=== PATIENT | female | born 1985 | race Caucasian/White ===

== ENCOUNTER 2017-11-12 22:55 | Emergency (ER) | payer OTHER, SELFPAY ==
[2017-11-12 23:24] VITALS: BP 135/73; PULSE 103; RESP 18; TEMP 36.9; O2SAT 100; BMI 24.1
[2017-11-13 00:20] VITALS: BP 135/70; PULSE 102; RESP 18; TEMP 37.1; O2SAT 100
[2017-11-13] MEDS: KETOROLAC 60 MG/2 ML VIAL IM (01:34)
[2017-11-13 01:50] VITALS: BP 149/79; PULSE 81; RESP 14; O2SAT 100
--- NOTE | 2017-11-13 06:55 | ED.BACK ---
HPI - Back Pain/Injury General Chief Complaint: Back Pain/Injury Stated Complaint: HEADACHE/FEVER Time Seen by Provider: 11/12/17 22:56 Source: patient Mode of arrival: ambulatory Limitations: no limitations History of Present Illness HPI Narrative: Patient presents to the emergency department this evening with a chief complaint of gradually worsening neck pain and now headache after doing some collin diving at [employer] earlier today. She denies numbness, tingling or weakness. She denies any loss of consciousness nor nausea or vomiting MD Complaint: other (neck pain) Onset (ago): hour(s) Duration: constant Similar Symptoms Previously: No Severity: mild Quality: burning Relieving factors: none Exacerbating factors: none Related Data Home Medications Medication Instructions Recorded Confirmed cyclobenzaprine #0 02/13/17 spironolactone [Aldactone] #0 02/13/17 Previous Rx's Medication Instructions Recorded epinephrine [EpiPen 2-Fabio] 0.3 mg INJ X1 #1 pkg 02/13/17 ondansetron [Zofran ODT] 4 mg SUBLINGUAL Q6HP PRN #20 odt 02/13/17 prednisone 50 mg PO AMCC #5 tab 02/13/17 ibuprofen 600 mg PO TID-QID PRN #20 tab 11/13/17 Allergies Allergy/AdvReac Type Severity Reaction Status Date / Time hydrochlorothiazide Allergy Severe angioedema Verified 11/12/17 23:31 Review of Systems Review of Systems All systems reviewed & are unremarkable except as noted in HPI and below Constitutional Denies chills, Denies fever(s), Denies lethargy and Denies weakness Eyes Denies change in vision, Denies eye discharge, Denies irritation and Denies loss of vision ENT Ears, Nose, Mouth, and Throat: Denies change in voice, Reports neck pain and Denies sore throat Cardiovascular Denies chest pain, Denies irregular heart rhythm, Denies lightheadedness, Denies palpitations, Denies dyspnea, Denies dyspnea on exertion and Denies orthopnea Respiratory Denies cough, Denies dyspnea, Denies dyspnea on exertion and Denies wheezing Gastrointestinal Gastrointestinal: Denies abdominal pain, Denies change in bowel habits, Denies diarrhea, Denies nausea and Denies vomiting Genitourinary Denies hematuria, Denies flank pain, Denies urinary incontinence and Denies urinary urgency Musculoskeletal Reports neck pain, Denies numbness, Denies radiating pain into limb and Denies stiffness Integumentary/Breasts Denies pruritus, Denies erythema, Denies rash and Denies wounds Neurologic Denies confusion, Denies loss of vision, Denies numbness and Denies weakness Psychiatric Denies anxiety, Denies confusion, Denies depression, Denies homicidal ideation and Denies suicidal ideation Endocrine Denies palpitations Hematologic/Lymphatic Denies easy bruising Allergic/Immunologic Denies wheezing [facility] Social History Smoking Status: Never smoker Exam Initial Vital Signs Initial Vital Signs: Vital Signs Temperature 98.5 F 11/12/17 23:24 Pulse Rate 103 H 11/12/17 23:24 Respiratory Rate 18 11/12/17 23:24 Blood Pressure 135/73 H 11/12/17 23:24 Pulse Oximetry 100 11/12/17 23:24 Const General: cooperative and well developed Nutritional Appearance: well nourished Orientation: alert, awake, oriented x3 and not confused HENNC Head: normocephalic and atraumatic Ears: external ears normal and TM's normal bilaterally Nose: external nose normal and No nasal discharge Face and sinus: sinuses nontender, face symmetric, no sinus tenderness and No dry mucous membranes Mouth: oral mucosae normal and moist mucous membranes Teeth and gingiva: dentition normal Throat: tonsils normal and uvula midline Neck Neck: normal visual inspection, full ROM, No no meningeal signs, No trachea midline, supple, No anterior neck swelling, No lymphadenopathy, No midline deformity, No positive Brudzinski's sign, No positive Kernig's sign, tender, No torticollis, No tracheal deviation and No tracheostomy present Resp Effort & Inspection: normal respiratory effort, able to speak in complete sentences, no respiratory distress and no use of accessory muscles Auscultation: clear to auscultation bilaterally, no rales, no rhonchi and no wheezes GI Inspection: non-distended Palpation: soft, no hepatosplenomegaly, No guarding, No pulsatile mass and No tender Auscultation: normal bowel sounds Back/Spine/Pelvis Back: No CVA tenderness Cervical Spine: cervical ROM normal and No pain with cervical ROM Thoracic/Lumbar Spine: thoracic and lumbar spine normal to inspection Skin General: no rashes or lesions noted, No jaundice and No petechiae Neuro General: alert, oriented x3, gait normal and no focal motor deficits Speech: speech normal Course Orders Ordered: Discontinued Medications Ketorolac Tromethamine (Toradol) 60 mg IM NOW ONE Stop: 11/13/17 01:27 Last Admin: 11/13/17 01:34 Dose: 60 mg Reevaluation(s) Reevaluation #1: Patient experiences some relief after Toradol injection. Mild improvement after trigger point injections with 1 cc of lidocaine at insertion of paraspinal cervical muscles and nuchal ridge bilaterally Vital Signs - 8 hr 11/12/17 23:24 11/13/17 00:20 11/13/17 01:50 Temperature 98.5 F 98.8 F Pulse Rate 103 H 102 H 81 Respiratory Rate 18 18 14 Blood Pressure 135/73 H Blood Pressure [Right Arm] 135/70 H 149/79 H Pulse Oximetry 100 100 100 Discharge Plan Departure Patient Disposition: Home, Self-Care Clinical Impression: Cervical paraspinal muscle spasm Discharge Date/Time: 11/13/17 02:05 Interventions: ED Discharge Assessment Last Done: 11/13/17 02:05 Instructions: DI for Neck Pain Activity Restrictions/Additional Instructions: *You have been diagnosed with [cervical paraspinal muscle spasm ] *What to do: *Take medications as directed *Follow up with your primary care provider in 2-3 days *Return to ER if you should have any new, worsening or concerning symptoms Prescriptions: New ibuprofen 600 mg tablet 600 mg PO TID-QID PRN (Reason: pain) Qty: 20 RF: 0 No Action cyclobenzaprine 5 MG tablet Qty: 0 RF: 0 spironolactone [Aldactone] 25 MG tablet Qty: 0 RF: 0 prednisone 50 MG tablet 50 mg PO AMCC Qty: 5 RF: 0 epinephrine [EpiPen 2-Fabio] 0.3 MG/0.3 ML auto-injector 0.3 mg INJ X1 Qty: 1 RF: 0 ondansetron [Zofran ODT] 4 MG tablet,disintegrating 4 mg Sublingual Q6HP PRNQty: 20 RF: 0
== END 2017-11-13 02:05 | disposition home or self-care (01) ==
PROVIDERS: Emergency Provider Emergency Medicine
DX: R51 Headache (principal)
CPT/HCPCS: 96372; 99282; 99283; J1885

== ENCOUNTER → 2019-05-04 09:41 | Outpatient (CLI) | payer OTHER, SELFPAY ==
--- NOTE | 2019-05-04 09:43 | DI.RAD.S_ITS ---
PROCEDURE: XR CHEST 2V INDICATIONS: SOB, r/o pneumonia TECHNIQUE: 2 views of the chest were acquired. COMPARISON: None. FINDINGS: Surgical changes and devices: None. Lungs and pleura: Lungs are clear. No pleural effusions or pneumothorax. Mediastinum: Mediastinal contours are normal. Heart size is normal. Bones and chest wall: No suspicious bony abnormalities. Soft tissues appear unremarkable. IMPRESSION: No acute cardiopulmonary disease. Dictated by: Analilia Barton M.D. on 05/04/2019 at 9:56 Approved by: Analilia Barton M.D. on 05/04/2019 at 9:57
== END ==
PROVIDERS: Visit Provider Nurse Practitioner
DX: R06.02 Shortness of breath (principal)
CPT/HCPCS: 71046

== ENCOUNTER → 2019-06-04 10:46 | Outpatient (CLI) | payer OTHER, SELFPAY ==
--- NOTE | 2019-06-04 | DI.US.S_ITS ---
PROCEDURE: US THYROID INDICATIONS: DYSPHAGIA TECHNIQUE: Real-time scanning was performed of the thyroid gland, with image documentation. COMPARISON: None. FINDINGS: Right: Thyroid lobe measures 5.4 x 1.9 x 1.6 cm, and is homogeneous in echotexture. Left: Thyroid lobe measures 3.7 x 1.7 x 1.2 cm, and is homogenous in echotexture. Isthmus: 3.0 mm thick. IMPRESSION: Normal thyroid. Dictated by: Aj ASHLEY Interpreted: Librado Hatch MD on 06/04/2019 at 11:51 Approved by: Librado Hatch M.D. on 06/04/2019 at 13:28
== END ==
PROVIDERS: Visit Provider Otolaryngology
DX: R13.19 Other dysphagia (principal)
CPT/HCPCS: 76536

== ENCOUNTER 2019-10-27 11:06 | Emergency (ER) | payer OTHER, SELFPAY ==
[2019-10-27 11:22] VITALS: BP 148/66; PULSE 121; RESP 14; TEMP 36.4; O2SAT 98
[2019-10-27 13:59] VITALS: BP 134/73
--- NOTE | 2019-10-27 14:46 | ED_ITS ---
HPI - Extremity Problem General Chief complaint: Extremity Problem,Nontraumatic Stated complaint: Pain in Rt are & fingers 2 days, face flushed Time Seen by Provider: 10/27/19 14:25 Mode of arrival: Ambulatory History of Present Illness HPI Narrative: CC: Right hand and arm pain. HPI: The patient is a 34-year-old female who has a history of Raynaud's phenomena. She states that she developed pain and discomfort in her pointing finger over the last 2 months. The pain then moved to the adjacent fingers. The pain has moved up her arm and from her arm to her neck into the side of her face. The discomfort is throbbing dull and achy. She feels as though she has a pressure in her arm and that it is going to explode. Her discomfort is 6 to 7/10 in intensity. She states that her right face feels warm and and becomes erythematous. She admits to a history of migraines and ocular migraines. She usually has an ocular migraine once a month. She has not had any eye pain or loss of vision or change of vision. She currently has a mild headache. She denies any fall or injury. She denies a history of myocardial infarction stroke seizures hypertension di abetes mellitus. She does not smoke cigarettes rarely uses marijuana and drinks alcohol periodically. She denies any seizures. She has had no loss of vision change in vision or diplopia at this time. She has had no chest pain palpitations dizziness or shortness of breath. Her last menstrual period was 1 week ago. She has had no rash hives ulcers on her fingers. She states that periodically h er hands turn red but she has not had the blue or white discoloration. She denies any abdominal pain nausea vomiting diarrhea change in bowel habits or any urinary symptoms. Last menstrual period was 1 week ago. Related Data Home Medications Medication Instructions Recorded Confirmed cyclobenzaprine #0 02/13/17 Previous Rx's Medication Instructions Recorded epinephrine [EpiPen 2-Fabio] 0.3 mg INJ X1 #1 pkg 02/13/17 ondansetron [Zofran ODT] 4 mg SUBLINGUAL Q6HP PRN #20 odt 02/13/17 ibuprofen 600 mg PO TID-QID PRN #20 tab 11/13/17 fluticasone propionate 50 1 spray NASAL BID #15.8 ml 05/04/19 mcg/actuation nasal spray,suspension cyclobenzaprine 10 mg PO TID PRN #15 tab 10/27/19 ibuprofen 600 mg PO QID PRN #20 tab 10/27/19 Allergies Allergy/AdvReac Type Severity Reaction Status Date / Time hydrochlorothiazide Allergy Severe angioedema Verified 05/04/19 09:27 spironolactone Allergy Unknown Verified 10/27/19 11:26 Review of Systems Review of Systems Narrative: Her review of systems were all negative except for those mentioned in the history of present illness. Patient History Social History Smoking Status: Never smoker Smoking Status: Never smoker alcohol intake frequency: a few times a week Substance Use Type: does not use Exam Narrative Exam Narrative: PHYSICAL EXAM: CONSTITUTIONAL: Awake, Alert, Oriented, Coherent, Cooperative in NAD. Does not appear toxic or ill. HEAD: AT/NC EENT: PERRL, FROM of eyes, no discharge, no nystagmus NECK: Supple, no obvious JVD, Trachea is midline without stridor, no palpable LN . No erythema. The patient's right side of her neck may be a little bit warm. SPINE: Palpationof the cervical, Thoracic, Lumbar or Sacral spine reveals no gross deformity or tenderness. No CVA tenderness. THORAX: No deformity, retractions, chest wall tenderness. LUNGS: Clear, symmetrical breath sounds without respiratory distress. HEART: Normal heart tones, regular rhythm and rate without murmur. ABDOMEN: Soft, non-tender, normal bowel sounds without guarding, rebound, rigidity or palpable mass. EXTREMITIES: Patient has full range of motion of her fingers of the right hand to flexion extension abduction adduction. There is no gross swelling or erythema of her fingers. There are no ulcers at the end of her finger tips. Radial pulses 2+. The patient has full range of motion of her right wrist to flexion extension abduction adduction. She is able to flex and extend her elbow supinate and pronate the arm. She has full range of motion of her shoulder. The mid upper arm has a mild area of erythema without warmth. There is no bruising noted. SKIN: No rash, bruising, petechiae or purpura. NEURO: Awake, alert, oriented, conversive, cranial nerves II-XII are symmetrical , moves all 4 extremities and is ambulatory. Initial Vital Signs Initial Vital Signs: Vital Signs Temperature 97.6 F 10/27/19 11:22 Pulse Rate 121 H 10/27/19 11:22 Respiratory Rate 14 10/27/19 11:22 Blood Pressure 148/66 H 10/27/19 11:22 Pulse Oximetry 98 10/27/19 11:22 Scores NIH Stroke Scale Level of Conciousness: Alert, keenly responsive Ask month/age: Answers neither question correctly, aphasic, stuporous, coma Open/close eyes, close hand: Performs one task correctly Best gaze horizontal: Normal Visual garay: No visual loss Facial palsy: Minor paralysis, flattened nasolabial fold, asymmetry on smiling Left arm drift: No drift for full 10 sec Right arm drift: No drift for full 10 sec Left leg drift: No drift for full 10 sec Right leg drift: No drift for full 10 sec Limb ataxia: Absent Sensory on face/arms/legs: Mild to moderate sensory loss, can tell touch Best language: Mild to moderate, slurs some words Dysarthria: Mild to mod,some slurring Extinction or inattention: No abnormality Total NIH Stroke scale score: 7 Course Course Course Narrative: The patient was worried that she had a blood clot in the arm. Her D-dimer was less than 200. She was reassured that she did not have a blood clot in the arm. The patient has a history of migraines and with her symptomatology I was questioning whether not the patient had some neurological sequelae causing the pain and discomfort. The patient was treated as though she might be having atypical migraine variant being administered Toradol, Reglan, Benadryl, and Solu-Medrol. The patient's pain and discomfort significantly improved. The patient was advised to keep a log and diary of her symptoms time and date and to follow-up with her primary care physician. Ice informed her that this is not the normal presentation of Raynaud's phenomena. She is on no medications for her Raynaud's phenomena. She was discharged home in placed on arm ibuprofen. Orders Ordered: ED Orders 10/27/19 15:00 Basic Metabolic Panel Stat C-Reactive Protein Quant Stat Complete Blood Count AUTO DIFF Stat D Dimer Stat Erythrocyte Sedimentation Rate Stat Discontinued Medications Diphenhydramine HCl (Benadryl) 25 mg IV NOW ONE Stop: 10/27/19 14:44 Last Admin: 10/27/19 15:13 Dose: 25 mg Documented by: MICHELA Ketorolac Tromethamine (Toradol) 30 mg IV NOW ONE Stop: 10/27/19 14:44 Last Admin: 10/27/19 15:12 Dose: 30 mg Documented by: MICHELA Methylprednisolone (Solu-Medrol 125 Mg Vial) 125 mg IV NOW ONE Stop: 10/27/19 14:46 Last Admin: 10/27/19 15:11 Dose: 125 mg Documented by: MICHELA Metoclopramide HCl (Reglan) 10 mg IV NOW ONE Stop: 10/27/19 14:44 Last Admin: 10/27/19 15:12 Dose: 10 mg Documented by: MICHELA Vital Signs Vital signs: Vital Signs - 8 hr 10/27/19 13:59 10/27/19 16:48 Pulse Rate 79 Respiratory Rate 14 Blood Pressure [Right Arm] 134/73 120/66 Pulse Oximetry 100 MDM - Extremity (Nontraumatic) Lab Data Result diagrams: 10/27/19 15:00 10/27/19 15:00 Labs: Lab Results 10/27/19 10/27/19 10/27/19 Range/Units 15:00 15:00 15:00 WBC (4.5-11.0) X10^3/uL RBC (4.0-5.2) X10^6/uL Hgb (12.0-16.0) g/dL Hct (36-46) % MCV (80-100) fL MCH (26-34) PG MCHC (30-36) % RDW (11.6-14.8) % Plt Count (150-400) X10^3/uL Neut % (Auto) (50-75) % Lymph % (Auto) (25-40) % [place] % (Auto) (3-14) % Eos % (Auto) (2-4) % Baso % (Auto) (0-2) % Neut # (Auto) (5188-8961) /uL Lymph # (Auto) (0013-5244) /uL [place] # (Auto) (0-900) /uL Eos # (Auto) (0-450) /uL Baso # (Auto) (0-100) /uL ESR 10 (0-20) MM/HR D-Dimer < 200 (<230) ng/mL Sodium (137-145) mmol/L Potassium (3.4-5.1) mmol/L Chloride (98-107) mmol/L Carbon Dioxide (22-32) mmol/L BUN (7-17) mg/dL Creatinine (0.52-1.04) mg/dL Estimated GFR (>60) mL/min BUN/Creatinine Ratio (6-22) Glucose (70-100) mg/dL Calcium (8.4-10.2) mg/dL C-Reactive Protein < 0.5 (<1.0) mg/dL 10/27/19 10/27/19 Range/Units 15:00 15:00 WBC 5.9 (4.5-11.0) X10^3/uL RBC 4.23 (4.0-5.2) X10^6/uL Hgb 13.0 (12.0-16.0) g/dL Hct 38.2 (36-46) % MCV 90.4 (80-100) fL MCH 30.6 (26-34) PG MCHC 33.9 (30-36) % RDW 13.4 (11.6-14.8) % Plt Count 277 (150-400) X10^3/uL Neut % (Auto) 68.3 (50-75) % Lymph % (Auto) 24.5 L (25-40) % [place] % (Auto) 4.6 (3-14) % Eos % (Auto) 1.2 L (2-4) % Baso % (Auto) 1.4 (0-2) % Neut # (Auto) 4000 (0085-9362) /uL Lymph # (Auto) 1400 (9137-4770) /uL [place] # (Auto) 300 (0-900) /uL Eos # (Auto) 100 (0-450) /uL Baso # (Auto) 100 (0-100) /uL ESR (0-20) MM/HR D-Dimer (<230) ng/mL Sodium 136 L (137-145) mmol/L Potassium 3.8 (3.4-5.1) mmol/L Chloride 102 (98-107) mmol/L Carbon Dioxide 25 (22-32) mmol/L BUN 16 (7-17) mg/dL Creatinine 0.73 (0.52-1.04) mg/dL Estimated GFR > 60.0 (>60) mL/min BUN/Creatinine Ratio 21.9 (6-22) Glucose 85 (70-100) mg/dL Calcium 9.1 (8.4-10.2) mg/dL C-Reactive Protein (<1.0) mg/dL Point of Care Testing Test Results Negative Urine Dip Bedside Urine Glucose Negative Bedside Urine Bilirubin - Negative Bedside Urine Ketone +++ 80 Urine Specific [place] 1.030 Bedside Urine Occult Blood - Negative Bedside Urine pH 5.5 Bedside Urine Protein - Negative Bedside Urine Urobilinogen - Negative Bedside Urine Nitrite - Negative Bedside Urine Leukocytes - Negative Esterase Discharge Plan Departure Patient Disposition: Home Clinical Impression: Arm pain, right Raynaud's disease Qualifiers: Raynaud?s-associated gangrene presence: without gangrene Qualified Code(s): I7 3.00 - Raynaud's syndrome without gangrene Discharge Date/Time: 10/27/19 17:22 Instructions: DI for Arm Pain Activity Restrictions/Additional Instructions: 1. Follow-up with your primary care physician. 2. Take the medications as prescribed. 3. You do not have a blood clot in your arm. Prescriptions: New ibuprofen 600 mg tablet 600 mg PO QID PRN (Reason: pain) Qty: 20 RF: 0 cyclobenzaprine 10 mg tablet 10 mg PO TID PRN (Reason: muscle spasm) Qty: 15 RF: 0 No Action fluticasone propionate [Flonase Allergy Relief] 50 mcg/actuation spray,suspension 1 spray NASAL BID Qty: 15.8 RF: 0 cyclobenzaprine 5 MG tablet Qty: 0 RF: 0 epinephrine [EpiPen 2-Fabio] 0.3 MG/0.3 ML auto-injector 0.3 mg INJ X1 Qty: 1 RF: 0 ondansetron [Zofran ODT] 4 MG tablet,disintegrating 4 mg Sublingual Q6HP PRNQty: 20 RF: 0 ibuprofen 600 mg tablet 600 mg PO TID-QID PRN (Reason: pain) Qty: 20 RF: 0
[2019-10-27] MEDS: methylPREDNISolone 125 MG/2 ML VIAL IV (15:11)
[2019-10-27] MEDS: KETOROLAC 60 MG/2 ML VIAL 30 MG IV (15:12)
[2019-10-27] MEDS: METOCLOPRAMIDE 10 MG/2 ML INJ IV (15:12)
[2019-10-27] MEDS: diphenhydrAMINE 50 MG/ML VIAL 25 MG IV (15:13)
[2019-10-27 15:19] LABS: Add Manual Diff / Slide Review NO; Basophils Absolute Auto 100 /uL (0-100); Basophils Percent Auto 1.4 % (0-2); Eosinophils Absolute Auto 100 /uL (0-450); Eosinophils Percent Auto 1.2 % (2-4); Hematocrit 38.2 % (36-46); Lymphocytes Absolute Auto 1400 /uL (1100-4500); Lymphocytes Percent Auto 24.5 % (25-40); Mean Corpuscular HGB Conc 33.9 % (30-36); Mean Corpuscular Hemoglobin 30.6 PG (26-34); Mean Corpuscular Volume 90.4 fL (80-100); Monocytes Absolute Auto 300 /uL (0-900); Monocytes Percent Auto 4.6 % (3-14); Neutrophils Absolute Auto 4000 /uL (1500-7000); Neutrophils Percent Auto 68.3 % (50-75); Platelet Count 277 X10^3/uL (150-400); Red Blood Cell Count 4.23 X10^6/uL (4.0-5.2); Red Cell Distribution Width 13.4 % (11.6-14.8); White Blood Cell Count 5.9 X10^3/uL (4.5-11.0)
[2019-10-27 15:30] LABS: BUN Creatinine Ratio 21.9 (6-22); Blood Urea Nitrogen 16 mg/dL (7-17); Calcium 9.1 mg/dL (8.4-10.2); Carbon Dioxide 25 mmol/L (22-32); Chloride 102 mmol/L (98-107); Estimated Glomerular Filt Rate > 60.0 mL/min (>60); Glucose 85 mg/dL (70-100); HEMOLYSIS < 15 (0-50); Potassium 3.8 mmol/L (3.4-5.1); Sodium 136 mmol/L (137-145)
[2019-10-27 15:32] LABS: D Dimer < 200 ng/mL (<230)
[2019-10-27 15:34] LABS: C-Reactive Protein Quant < 0.5 mg/dL (<1.0)
[2019-10-27 15:49] LABS: Erythrocyte Sedimentation Rate 10 MM/HR (0-20)
[2019-10-27 16:48] VITALS: BP 120/66; PULSE 79; RESP 14; O2SAT 100
== END 2019-10-27 17:22 | disposition home or self-care (01) ==
PROVIDERS: Emergency Provider Emergency Medicine
DX: M79.601 Pain in right arm (principal); I73.00 Raynaud's syndrome without gangrene
CPT/HCPCS: 36415; 80048; 81003; 81025; 85025; 85379; 85651; 86140; 96374; 96375; 99284; J1200; J1885; J2765; J2930

== ENCOUNTER 2020-04-14 14:36 | Emergency (ER) | payer OTHER, SELFPAY ==
[2020-04-14 14:44] VITALS: BP 159/77; PULSE 93; RESP 15; TEMP 36.7; O2SAT 100; BMI 25.7
--- NOTE | 2020-04-14 15:04 | ED_ITS ---
HPI - Neck Pain/Injury General Chief Complaint: Neck Pain/Injury Stated Complaint: lump r side of neck,dizziness,tender/sore,migrane Time Seen by Provider: 04/14/20 14:40 Source: patient and family Mode of arrival: Ambulatory Limitations: no limitations History of Present Illness HPI Narrative: 34-year-old female with history of migraines presents with mother and a chief complaint of swollen, painful, lesion the angle of her right draw in the absence of any injury. She states it has been there for past few days and seems to possibly be associated with 2 ocular type migraines which she has had the same time frame. Both of these follow typical patterns and have resolved without any need for emergent intervention, however she admits that this is odd for her to have to and such rapid succession. Additionally, she states that she has had a few episodes feeling lightheaded and a bit unwell at work. She does not relate her lightheadedness to change in position, chest pain or palpitations. She does not relate it to the presence of her migraine. She recently had a dental cleaning and has seen her dentist who states this is not an obvious odontogenic source. Related Data Home Medications Medication Instructions Recorded Confirmed cyclobenzaprine #0 02/13/17 Previous Rx's Medication Instructions Recorded epinephrine [EpiPen 2-Fabio] 0.3 mg INJ X1 #1 pkg 02/13/17 ondansetron [Zofran ODT] 4 mg SUBLINGUAL Q6HP PRN #20 odt 02/13/17 ibuprofen 600 mg PO TID-QID PRN #20 tab 11/13/17 fluticasone propionate 50 1 spray NASAL BID #15.8 ml 05/04/19 mcg/actuation nasal spray,suspension cyclobenzaprine 10 mg PO TID PRN #15 tab 10/27/19 ibuprofen 600 mg PO QID PRN #20 tab 10/27/19 amoxicillin-pot clavulanate 1 tab PO BID 7 Days #14 tab 04/14/20 [Augmentin] ketorolac 10 mg PO Q6H PRN #20 tab 04/14/20 ketorolac 10 mg PO TID PRN 5 Days tab 04/14/20 Allergies Allergy/AdvReac Type Severity Reaction Status Date / Time hydrochlorothiazide Allergy Severe angioedema Verified 05/04/19 09:27 spironolactone Allergy Unknown Verified 10/27/19 11:26 Review of Systems Constitutional Constitutional: Denies chills, Denies fatigue, Denies fever(s), Denies frequent falls, Reports headache(s), Denies lethargy and Reports weakness Eyes Eyes: Denies change in vision, Denies eye discharge, Denies irritation and Denies loss of vision ENT Ears, Nose, Mouth, and Throat: Denies change in voice, Reports dizziness, Reports headache(s), Denies neck pain, Denies sore throat and Denies throat swelling Cardiovascular Cardiovascular: Denies chest pain, Denies irregular heart rhythm, Denies lightheadedness, Denies palpitations, Denies dyspnea, Denies dyspnea on exertion and Denies orthopnea Respiratory Respiratory: Denies cough, Denies dyspnea, Denies dyspnea on exertion and Denies wheezing Gastrointestinal Gastrointestinal: Denies abdominal pain, Denies change in bowel habits, Denies diarrhea, Denies nausea and Denies vomiting Musculoskeletal Musculoskeletal: Denies neck pain and Denies numbness Integumentary/Breasts Skin/Breast: Denies pruritus, Denies erythema, Denies rash and Denies wounds Neurologic Neurologic: Denies behavioral changes, Denies confusion, Reports dizziness, Denies frequent falls, Reports headache(s), Denies loss of vision, Denies numbness and Reports weakness Psychiatric Psychiatric: Denies anxiety, Denies behavioral changes, Denies confusion, Denies depression, Denies homicidal ideation and Denies suicidal ideation Endocrine Endocrine: Denies fatigue, Denies flushing and Denies palpitations Hematologic/Lymphatic Hematologic/Lymphatic: Denies easy bruising and Reports lymphadenopathy Allergic/Immunologic Allergic/Immunologic: Denies urticaria, Denies throat swelling and Denies wheez ing Patient History Social History Smoking Status: Never smoker Smoking Status: Never smoker alcohol intake frequency: a few times a week Substance Use Type: marijuana Exam Narrative Exam Narrative: GENERAL: [34] year old patient appears stated age. Well- nourished, well-developed patient, in mild distress. HEAD: Atraumatic. Normocephalic. EYES: Pupils equal round and reactive. Extraocular motions intact. No scleral icterus. No injection or drainage. ENT: No obvious intraoral abscess Nose without bleeding, purulent drainage. Throat without erythema, tonsillar hypertrophy or exudate. Airway patent. NECK: Mildly swollen, tender node versus early parotitis at the angle of the right jaw. No redness, warmth or induration Trachea midline. Non tender CARDIOVASCULAR: Regular rate and rhythm without murmurs, gallops, or rubs. RESPIRATORY: Clear to auscultation. Breath sounds equal bilaterally. No wheezes, rales, or rhonchi. GASTROINTESTINAL: Abdomen soft, non-tender, nondistended. EXTREMITIES: No edema or joint tenderness. BACK: Nontender without deformity or crepitance. No flank tenderness. NEURO: AOx3. SKIN: No rash or erythema of visible areas Initial Vital Signs Initial Vital Signs: Vital Signs Temperature 98.1 F 04/14/20 14:44 Pulse Rate 93 H 04/14/20 14:44 Respiratory Rate 15 04/14/20 14:44 Blood Pressure 159/77 H 04/14/20 14:44 Pulse Oximetry 100 04/14/20 14:44 Course Course Course Narrative: After initial exam patient informs me that she had recently undergone whole body cleanse with strict dietary regulations very recently and also has been under significant stress at home. It would seem reasonable to consider these changes to be consistent with causes of increased frequency of headache and some lightheadedness. Additionally, given recent dental procedure this could very well be a local reaction to her cleaning. For this reason Augmentin is considered for coverage of odontogenic infection. Extensive discussion for return precautions given to the patient and family friend. Questions answered to their apparent satisfaction. Orders Ordered: ED Orders 04/14/20 15:09 Basic Metabolic Panel Stat Complete Blood Count AUTO DIFF Stat Urine Microscopic Stat Vital Signs Vital signs: Vital Signs - 8 hr 04/14/20 14:44 Temperature 98.1 F Pulse Rate 93 H Respiratory Rate 15 Blood Pressure 159/77 H Pulse Oximetry 100 MDM - Neck Pain/Injury Lab Data Result diagrams: 04/14/20 15:09 04/14/20 15:09 Labs: Lab Results 04/14/20 04/14/20 04/14/20 Range/Units 15:09 15:09 15:09 WBC 6.8 (4.5-11.0) X10^3/uL RBC 3.99 L (4.0-5.2) X10^6/uL Hgb 12.2 (12.0-16.0) g/dL Hct 36.6 (36-46) % MCV 91.7 (80-100) fL MCH 30.6 (26-34) PG MCHC 33.3 (30-36) % RDW 13.2 (11.6-14.8) % Plt Count 294 (150-400) X10^3/uL Neut % (Auto) 66.3 (50-75) % Lymph % (Auto) 25.0 (25-40) % [place] % (Auto) 6.0 (3-14) % Eos % (Auto) 1.7 L (2-4) % Baso % (Auto) 1.0 (0-2) % Neut # (Auto) 4500 (2703-4043) /uL Lymph # (Auto) 1700 (9813-0875) /uL [place] # (Auto) 400 (0-900) /uL Eos # (Auto) 100 (0-450) /uL Baso # (Auto) 100 (0-100) /uL Sodium 135 L (137-145) mmol/L Potassium 4.0 (3.4-5.1) mmol/L Chloride 102 (98-107) mmol/L Carbon Dioxide 29 (22-32) mmol/L BUN 13 (7-17) mg/dL Creatinine 0.76 (0.52-1.04) mg/dL Estimated GFR > 60.0 (>60) mL/min BUN/Creatinine Ratio 17.1 (6-22) Glucose 98 (70-100) mg/dL Calcium 9.0 (8.4-10.2) mg/dL Urine RBC 0-1/hpf (0-5/HPF) Urine WBC 0-1/hpf (0-5/HPF) Ur Squamous Epith Cells 1-5 /hpf (0-5/HPF) Urine Bacteria None seen (None) Urine Mucus 1+ H (Negative) Ur Culture Indicated? Cult not indicated Urine Dip Bedside Urine Glucose Negative Bedside Urine Bilirubin - Negative Bedside Urine Ketone - Negative Urine Specific Nabb 1.030 Bedside Urine Occult Blood - Negative Bedside Urine pH 6.0 Bedside Urine Protein - Negative Bedside Urine Urobilinogen - Negative Bedside Urine Nitrite - Negative Bedside Urine Leukocytes - Negative Esterase Discharge Plan Departure Patient Disposition: Home Clinical Impression: Acute parotitis Instructions: DI for Lymphadenopathy Activity Restrictions/Additional Instructions: *You have been diagnosed with [painful lump on right side of neck, reactive lymphadenopathy versus acute parotitis] *What to do: *Take medications as directed: Prescriptions electronically transmitted to [facility]'s at your request *Follow up with your primary care provider in 2-3 days, call for an appo intment. Let them know you were seen in the Emergency Department and that we ask that you be seen in follow up *Return to ER if you should have any new, worsening or concerning symptoms such as worsening swelling of your neck, recurrence of headaches, worsening or more persistent lightheadedness, trouble breathing, trouble swallowing or other bothersome symptoms Prescriptions: New amoxicillin-pot clavulanate [Augmentin] 875-125 mg tablet 1 tab PO BID 7 Days Qty: 14 RF: 0 ketorolac 10 mg tablet 10 mg PO TID PRN (Reason: pain) 5 Days RF: 0 ketorolac 10 mg tablet 10 mg PO Q6H PRN (Reason: pain) Qty: 20 RF: 0 No Action fluticasone propionate [Flonase Allergy Relief] 50 mcg/actuation spray,suspension 1 spray NASAL BID Qty: 15.8 RF: 0 cyclobenzaprine 5 MG tablet Qty: 0 RF: 0 epinephrine [EpiPen 2-Fabio] 0.3 MG/0.3 ML auto-injector 0.3 mg INJ X1 Qty: 1 RF: 0 ondansetron [Zofran ODT] 4 MG tablet,disintegrating 4 mg Sublingual Q6HP PRNQty: 20 RF: 0 ibuprofen 600 mg tablet 600 mg PO QID PRN (Reason: pain) Qty: 20 RF: 0 cyclobenzaprine 10 mg tablet 10 mg PO TID PRN (Reason: muscle spasm) Qty: 15 RF: 0 ibuprofen 600 mg tablet 600 mg PO TID-QID PRN (Reason: pain) Qty: 20 RF: 0 Referrals: Calvin Urrutia FNP-C [Primary Care Provider] -
[2020-04-14 15:15] LABS: Bacteria Urine None Seen
[2020-04-14 15:29] LABS: BUN Creatinine Ratio 17.1 (6-22); Blood Urea Nitrogen 13 mg/dL (7-17); Carbon Dioxide 29 mmol/L (22-32); Chloride 102 mmol/L (98-107); Estimated Glomerular Filt Rate > 60.0 mL/min (>60); Glucose 98 mg/dL (70-100); HEMOLYSIS < 15 (0-50); Sodium 135 mmol/L (137-145)
[2020-04-14 15:33] LABS: Add Manual Diff / Slide Review NO; Basophils Absolute Auto 100 /uL (0-100); Eosinophils Absolute Auto 100 /uL (0-450); Eosinophils Percent Auto 1.7 % (2-4); Hematocrit 36.6 % (36-46); Hemoglobin 12.2 g/dL (12.0-16.0); Lymphocytes Absolute Auto 1700 /uL (1100-4500); Mean Corpuscular HGB Conc 33.3 % (30-36); Mean Corpuscular Hemoglobin 30.6 PG (26-34); Mean Corpuscular Volume 91.7 fL (80-100); Monocytes Absolute Auto 400 /uL (0-900); Neutrophils Absolute Auto 4500 /uL (1500-7000); Neutrophils Percent Auto 66.3 % (50-75); Platelet Count 294 X10^3/uL (150-400); Red Blood Cell Count 3.99 X10^6/uL (4.0-5.2); Red Cell Distribution Width 13.2 % (11.6-14.8); White Blood Cell Count 6.8 X10^3/uL (4.5-11.0)
[2020-04-14 15:44] LABS: Culture Indicated Urine Cult Not Indicated; Mucus Urine 1+ (Negative); RBC Urine 0-1/HPF (0-5/HPF); Squamous Epithelial Cell Urine 1-5 /HPF (0-5/HPF); WBC Urine 0-1/HPF (0-5/HPF)
== END 2020-04-14 16:13 | disposition home or self-care (01) ==
PROVIDERS: Emergency Provider Emergency Medicine; PCP Nurse Practitioner
DX: K11.21 Acute sialoadenitis (principal)
CPT/HCPCS: 36415; 80048; 81003; 81015; 85025; 99283

== ENCOUNTER 2020-04-16 14:14 | Emergency (ER) | payer OTHER, SELFPAY ==
[2020-04-16 14:18] VITALS: BP 139/72; PULSE 91; RESP 18; TEMP 37.2; O2SAT 98
[2020-04-16 14:21] VITALS: PULSE 89; O2SAT 100
[2020-04-16 14:30] VITALS: PULSE 82; O2SAT 100
--- NOTE | 2020-04-16 14:49 | DI.CT.S_ITS ---
PROCEDURE: CT HEAD/BRAIN WO CON INDICATIONS: vision changes, increased migraines TECHNIQUE: Noncontrast 4.5 mm thick angled axial sections acquired from the foramen magnum to the vertex, with coronal and sagittal reformats. For radiation dose reduction, the following was used: automated exposure control, adjustment of mA and/or kV according to patient size. COMPARISON: None. FINDINGS: Image quality: Excellent. CSF spaces: Basal cisterns are patent. No extra-axial fluid collections. Ventricles are normal in size and shape. Brain: No midline shift. No intracranial masses or hemorrhage. A[place]os-white matter interface is normal. Skull and face: Calvarium and visualized facial bones are intact, without suspicious lesions. Sinuses: Visualized sinuses and mastoids are clear. IMPRESSION: No acute intracranial finding demonstrated. Dictated by: Grant Castle M.D. on 04/16/2020 at 15:06 Approved by: Grant Castle M.D. on 04/16/2020 at 15:07
--- NOTE | 2020-04-16 15:03 | ED.DIZZY ---
HPI - Dizziness <ISIS PelletierP - Last Filed: 04/16/20 20:04> General Chief Complaint: Dizziness Stated Complaint: dizziness, lightheadness Time Seen by Provider: 04/16/20 14:21 Source: patient Mode of arrival: Ambulatory History of Present Illness HPI Narrative: 34yo female with a history of ocular migraines, presents emergency department for continuing lightheadedness and dizziness a lump on the back of the right side of her dry. Patient was seen in the ED on 04/14/2020 and evaluated for both complaint, laboratory work was normal and she was sent home with Augmentin and ketorolac for possible lymphadenopathy and parotitis. Patient spoke with Dr. Hanley this morning and reported continued lightheaded and dizziness, she chose to be re-evaluated today. She states Tuesday she developed an ocular migraine, and then developed dizziness and lightheadedness on Tuesday she describes dizziness as dizzy and occasionally week, denies room spinning, abnormal gait, or feelings of syncope. Tuesday she had an additional ocular migraine which she reports she does not usually get two migraines that close together. She continued to have dizziness on Tuesday and reports ?I felt like a truck hit me ?, she reported increasing fatigue and ?I slept all day ?. Yesterday she said the lump on the back of her drop was increasingly tender. However, she states today the lump is less tender. However, she continues to have lightheadedness and dizziness. She states occasionally her eyes well cross, she states this is uncommon with her migraines. She denies an ocular migraine today. Patient denies any headaches, double vision, vision loss, difficulty swallowing, sore throat, fevers, chills, rhinorrhea, chest pain, shortness of breath, or any other concerns. Related Data Home Medications Medication Instructions Recorded Confirmed cyclobenzaprine #0 02/13/17 Previous Rx's Medication Instructions Recorded epinephrine [EpiPen 2-Fabio] 0.3 mg INJ X1 #1 pkg 02/13/17 ondansetron [Zofran ODT] 4 mg SUBLINGUAL Q6HP PRN #20 odt 02/13/17 ibuprofen 600 mg PO TID-QID PRN #20 tab 11/13/17 fluticasone propionate 50 1 spray NASAL BID #15.8 ml 11/15/19 mcg/actuation nasal spray,suspension cyclobenzaprine 10 mg PO TID PRN #15 tab 10/27/19 ibuprofen 600 mg PO QID PRN #20 tab 10/27/19 ketorolac 10 mg PO Q6H PRN #20 tab 04/14/20 Allergies Allergy/AdvReac Type Severity Reaction Status Date / Time hydrochlorothiazide Allergy Severe angioedema Verified 05/04/19 09:27 spironolactone Allergy Unknown Verified 10/27/19 11:26 Review of Systems <LORENA Pelletier - Last Filed: 04/16/20 20:04> Review of Systems Narrative: REVIEW OF SYSTEMS: GENERAL: Denies fever or chills. HENT: No head trauma. Reports lump on posterior aspect of right side of jaw. EYES: Reports increased ocular migraines, states she had an episode of her eyes crossing, see HPI. CARDIOVASCULAR: No chest pain or syncope. RESPIRATORY: No shortness of breath or cough. GASTROINTESTINAL: No nausea, vomiting, diarrhea, or constipation. GENITOURINARY: No flank pain. MUSCULOSKELETAL: No pain. INTEGUMENTARY: No rash. NEURO: Complains of increased ocular migraines, see HPI. PSYCH: No behavior or mood changes. Patient History <LORENA Pelletier - Last Filed: 04/16/20 20:04> Medical History Ocular migraine (Acute) Social History Smoking Status: Never smoker Smoking Status: Never smoker alcohol intake frequency: a few times a week Substance Use Type: marijuana Exam <LORENA Pelletier - Last Filed: 04/16/20 20:04> Initial Vital Signs Initial Vital Signs: Vital Signs Temperature 99.0 F 04/16/20 14:18 Pulse Rate 91 H 04/16/20 14:18 Respiratory Rate 18 04/16/20 14:18 Blood Pressure 139/72 04/16/20 14:18 Pulse Oximetry 98 04/16/20 14:18 PHYSICAL EXAMINATION: GENERAL: Well groomed, alert, and cooperative. Answers questions promptly and appropriately. Vital signs noted. HENT: Normocephalic. Ear canals patent. Oral mucosa is pink and moist. Thyroid without enlargement. A small <1mm movable lump noted to the posterior aspect of right jaw in the parotid gland area. EYES: PERRLA, EOMIs, conjunctiva pink, sclera white, no periorbital swelling. NECK: Full ROM, no midline or spinal tenderness. CARDIOVASCULAR: S1 and S2 sounds normal. Regular rate and rhythm, no murmurs, clicks, or bruits. RESPIRATORY: Normal respiratory rate, trachea midline, airway patent. No stridor, nasal flaring or accessory muscle use. Lungs are clear in all garay without wheeze, rhonchi, or crackles. MUSCULOSKELETAL: Normal gait and coordination. Equal tone and mass bilaterally. Equal strength bilaterally to upper and lower extremities. No spinal tenderness. EXTREMITIES: CMS intact. Moves all extremities. SKIN: Warm, dry, soft, appropriate color for ethnicity. No lesions, rashes, or wounds to visualized areas. NEURO: Alert and Oriented X 3. GCS: 15. Good coordination. No ataxia, or sensory deficits, or cognitive issues. Cranial Nerves: II: Visual garay grossly intact. III & IV & : EOMIs V: Able to open and close jaw. VII: Facial movements symetrical. Able to close eyelids tightly. VIII: Hearing grossly intact, adequate balance. X: Uvula pronation intact. XI: Patient is able to shrug shoulders. XII: Patient is able to stick out tongue and move it side to side. PSYCH: Appropriate affect and mood. <Chris Hanley DO - Last Filed: 04/25/20 01:05> Initial Vital Signs Initial Vital Signs: Vital Signs Temperature 99.0 F 04/16/20 14:18 Pulse Rate 91 H 04/16/20 14:18 Respiratory Rate 18 04/16/20 14:18 Blood Pressure 139/72 04/16/20 14:18 Pulse Oximetry 98 04/16/20 14:18 Course <LORENA Pelletier - Last Filed: 04/16/20 20:04> Course Course Narrative: Patient reported feeling the same after administration of fluid, she was not dizzy at this point but states that the dizziness usually comes and goes anyway. Orders Ordered: Discontinued Medications Sodium Chloride (Normal Saline 0.9%) 1,000 mls @ 1,000 mls/hr IV BOLUS ONE Stop: 04/16/20 15:48 Last Infusion: 04/16/20 16:06 Dose: 0 mls/hr Documented by: Admin: 04/16/20 15:04 Dose: 1,000 mls/hr Documented by: JORGE Consultations Consultation #1: Patient staffed with Dr. Hanley discussed test, test results, plan of care. Vital Signs Vital signs: Vital Signs - 8 hr 04/16/20 14:18 04/16/20 14:21 04/16/20 14:30 Temperature 99.0 F Pulse Rate 91 H 89 82 Respiratory Rate 18 Blood Pressure 139/72 Pulse Oximetry 98 100 100 04/16/20 15:25 Temperature Pulse Rate 94 H Respiratory Rate 18 Blood Pressure 116/57 L Pulse Oximetry 100 <Chris Hanley DO - Last Filed: 04/25/20 01:05> Orders Ordered: Discontinued Medications Sodium Chloride (Normal Saline 0.9%) 1,000 mls @ 1,000 mls/hr IV BOLUS ONE Stop: 04/16/20 15:48 Last Infusion: 04/16/20 16:06 Dose: 0 mls/hr Documented by: Admin: 04/16/20 15:04 Dose: 1,000 mls/hr Documented by: JORGE Vital Signs Vital signs: Vital Signs - 8 hr 04/16/20 14:18 04/16/20 14:21 04/16/20 14:30 Temperature 99.0 F Pulse Rate 91 H 89 82 Respiratory Rate 18 Blood Pressure 139/72 Pulse Oximetry 98 100 100 04/16/20 15:25 Temperature Pulse Rate 94 H Respiratory Rate 18 Blood Pressure 116/57 L Pulse Oximetry 100 MDM - Dizziness <LORENA Pelletier - Last Filed: 04/16/20 20:04> Medical Records Attestation: I reviewed the patient's medical records. Lab Data Attestation: I reviewed the patient's lab results. Result diagrams: 04/16/20 14:55 04/16/20 14:55 Labs: Lab Results 04/16/20 04/16/20 Range/Units 14:55 14:55 WBC 6.4 (4.5-11.0) X10^3/uL RBC 3.89 L (4.0-5.2) X10^6/uL Hgb 11.9 L (12.0-16.0) g/dL Hct 35.6 L (36-46) % MCV 91.3 (80-100) fL MCH 30.5 (26-34) PG MCHC 33.4 (30-36) % RDW 12.9 (11.6-14.8) % Plt Count 254 (150-400) X10^3/uL Neut % (Auto) 69.1 (50-75) % Lymph % (Auto) 22.5 L (25-40) % [place] % (Auto) 5.7 (3-14) % Eos % (Auto) 1.6 L (2-4) % Baso % (Auto) 1.1 (0-2) % Neut # (Auto) 4400 (8769-5044) /uL Lymph # (Auto) 1400 (7362-1976) /uL [place] # (Auto) 400 (0-900) /uL Eos # (Auto) 100 (0-450) /uL Baso # (Auto) 100 (0-100) /uL Sodium 135 L (137-145) mmol/L Potassium 3.6 (3.4-5.1) mmol/L Chloride 103 (98-107) mmol/L Carbon Dioxide 26 (22-32) mmol/L BUN 15 (7-17) mg/dL Creatinine 0.68 (0.52-1.04) mg/dL Estimated GFR > 60.0 (>60) mL/min BUN/Creatinine Ratio 22.1 H (6-22) Glucose 101 H (70-100) mg/dL Calcium 8.8 (8.4-10.2) mg/dL Total Bilirubin 0.3 (0.2-1.3) mg/dL AST 22 (14-36) IU/L ALT 13 (<35) IU/L Alkaline Phosphatase 61 (38-126) U/L Troponin I < 0.012 (0.01-0.034) ng/mL Total Protein 7.1 (6.3-8.2) g/dL Albumin 4.2 (3.5-5.0) g/dL Globulin 2.9 (1.7-4.1) g/dL Albumin/Globulin Ratio 1.4 (1.0-2.8) Imaging Data CT scan - head: Radiologist's Impression: [address] [address] [address] Scan Report Signed Patient: Shasta Weinstein EMR#: [id number] : 1985Acct:[id number] Age/Sex: 34 / FDate of Service: 04/16/20 Loc: ED Accession Number: [id number] Procedure: CT head/brain wo con Ordering Provider: Latoya Geller PROCEDURE: CT HEAD/BRAIN WO CON INDICATIONS: vision changes, increased migraines TECHNIQUE: Noncontrast 4.5 mm thick angled axial sections acquired from the foramen magnum to the vertex, with coronal and sagittal reformats. For radiation dose reduction, the following was used: automated exposure control, adjustment of mA and/or kV according to patient size. COMPARISON: None. FINDINGS: Image quality: Excellent. CSF spaces: Basal cisterns are patent. No extra-axial fluid collections. Ventricles are normal in size and shape. Brain: No midline shift. No intracranial masses or hemorrhage. [place]os-white matter interface is normal. Skull and face: Calvarium and visualized facial bones are intact, without suspicious lesions. Sinuses: Visualized sinuses and mastoids are clear. IMPRESSION: No acute intracranial finding demonstrated. Dictated by: Grant Castle M.D. on 04/16/2020 at 15:06 Approved by: Grant Castle M.D. on 04/16/2020 at 15:07 ECG Data Interpretation: 1508: Sinus rhythm, rate 85, NH interval 129, QTC 413. No ST elevation or ST depression. No T-wave abnormality. No ectopy. EKG also viewed by Dr. hanley per protocol. MDM Narrative Medical decision making narrative: 34-year-old female with a history of ocular migraines, 04/14/2020 and diagnosed with acute prostatitis, returns to the emergency department for dizziness and continued lump in the back of right jaw. I Am unsure the exact cause of patient's symptoms. Due to patient's history, dizziness is unclear as she denies syncope but describes it as lightheadedness, it is intermittent, not exasperated by activity which decreases my concern for cardiac involvement. Symptoms are unchanged with fluid administration which decreases my concern for hypovolemia. Less likely cardiac etiology given negative troponin and unremarkable EKG. Laboratory work in concerning for significant anemia or electrolyte abnormality. Differential for dizziness includes ocular migraines versus vertigo. She was encouraged to follow up with PCP or Neurology for further evaluation and testing. CT was ordered due to increasing ocular migraines concerns which was negative for any concerning findings. Unsure exact cause of lump on the back of her jaw, discussed with patient that these are unlikely related symptoms. Differential for lump includes parotitis versus lymphadenopathy. Patient was encouraged to continue with Augmentin that was prescribed the past 2 days ago. Return precautions given for new or worsening symptoms. Patient agreed to plan of care verbalized understanding. <Chris Hanley, - Last Filed: 04/25/20 01:05> Lab Data Labs: Lab Results 04/16/20 04/16/20 Range/Units 14:55 14:55 WBC 6.4 (4.5-11.0) X10^3/uL RBC 3.89 L (4.0-5.2) X10^6/uL Hgb 11.9 L (12.0-16.0) g/dL Hct 35.6 L (36-46) % MCV 91.3 (80-100) fL MCH 30.5 (26-34) PG MCHC 33.4 (30-36) % RDW 12.9 (11.6-14.8) % Plt Count 254 (150-400) X10^3/uL Neut % (Auto) 69.1 (50-75) % Lymph % (Auto) 22.5 L (25-40) % [place] % (Auto) 5.7 (3-14) % Eos % (Auto) 1.6 L (2-4) % Baso % (Auto) 1.1 (0-2) % Neut # (Auto) 4400 (2918-2010) /uL Lymph # (Auto) 1400 (1970-1712) /uL [place] # (Auto) 400 (0-900) /uL Eos # (Auto) 100 (0-450) /uL Baso # (Auto) 100 (0-100) /uL Sodium 135 L (137-145) mmol/L Potassium 3.6 (3.4-5.1) mmol/L Chloride 103 (98-107) mmol/L Carbon Dioxide 26 (22-32) mmol/L BUN 15 (7-17) mg/dL Creatinine 0.68 (0.52-1.04) mg/dL Estimated GFR > 60.0 (>60) mL/min BUN/Creatinine Ratio 22.1 H (6-22) Glucose 101 H (70-100) mg/dL Calcium 8.8 (8.4-10.2) mg/dL Total Bilirubin 0.3 (0.2-1.3) mg/dL AST 22 (14-36) IU/L ALT 13 (<35) IU/L Alkaline Phosphatase 61 (38-126) U/L Troponin I < 0.012 (0.01-0.034) ng/mL Total Protein 7.1 (6.3-8.2) g/dL Albumin 4.2 (3.5-5.0) g/dL Globulin 2.9 (1.7-4.1) g/dL Albumin/Globulin Ratio 1.4 (1.0-2.8) Discharge Plan Departure Patient Disposition: Home Clinical Impression: Dizziness Discharge Date/Time: 04/16/20 16:12 Instructions: DI for Dizziness-Nonvertigo Activity Restrictions/Additional Instructions: Thank you for entrusting me with your care today. As discussed, your head CT, laboratory work, and EKG are non-remarkable. I am unsure the exact cause of your dizziness but recommend following up with a neurologist. Drink plenty of water, change positions slowly and get plenty of rest. Please continue with your Augmentin for the lump on your jaw. Follow-up with your PCP if the lump persist despite antibiotic treatment. Return emergency department for any new or worsening symptoms especially high fevers, chest pain, passing out, uncontrollable vomiting, or other concerns. Prescriptions: No Action fluticasone propionate [Flonase Allergy Relief] 50 mcg/actuation spray,suspension 1 spray NASAL BID Qty: 15.8 RF: 0 cyclobenzaprine 5 MG tablet Qty: 0 RF: 0 epinephrine [EpiPen 2-Fabio] 0.3 MG/0.3 ML auto-injector 0.3 mg INJ X1 Qty: 1 RF: 0 ondansetron [Zofran ODT] 4 MG tablet,disintegrating 4 mg Sublingual Q6HP PRNQty: 20 RF: 0 ibuprofen 600 mg tablet 600 mg PO QID PRN (Reason: pain) Qty: 20 RF: 0 cyclobenzaprine 10 mg tablet 10 mg PO TID PRN (Reason: muscle spasm) Qty: 15 RF: 0 ketorolac 10 mg tablet 10 mg PO Q6H PRN (Reason: pain) Qty: 20 RF: 0 ibuprofen 600 mg tablet 600 mg PO TID-QID PRN (Reason: pain) Qty: 20 RF: 0 Referrals: Rama Cordoba MD [Non-Staff] - (Worsening ocular migraines) Calvin Urrutia VETERINARY TECHNICIAN INSTRUCTOR-C [Primary Care Provider] - <Chris Hanley DO - Last Filed: 04/25/20 01:05> Cosign ED Attending [place] Attestation: I was immediately available in the department for consultation. This documentation has been reviewed and I agree with assessment and plan. Supervised by Chris Hanley DO
[2020-04-16] MEDS: SODIUM CHLORIDE 0.9% 1,000 ML 1000 ML IV (15:04)
[2020-04-16 15:05] LABS: Add Manual Diff / Slide Review NO; Basophils Absolute Auto 100 /uL (0-100); Basophils Percent Auto 1.1 % (0-2); Eosinophils Absolute Auto 100 /uL (0-450); Eosinophils Percent Auto 1.6 % (2-4); Hematocrit 35.6 % (36-46); Hemoglobin 11.9 g/dL (12.0-16.0); Lymphocytes Absolute Auto 1400 /uL (1100-4500); Lymphocytes Percent Auto 22.5 % (25-40); Mean Corpuscular HGB Conc 33.4 % (30-36); Mean Corpuscular Hemoglobin 30.5 PG (26-34); Mean Corpuscular Volume 91.3 fL (80-100); Monocytes Absolute Auto 400 /uL (0-900); Monocytes Percent Auto 5.7 % (3-14); Neutrophils Absolute Auto 4400 /uL (1500-7000); Neutrophils Percent Auto 69.1 % (50-75); Platelet Count 254 X10^3/uL (150-400); Red Blood Cell Count 3.89 X10^6/uL (4.0-5.2); Red Cell Distribution Width 12.9 % (11.6-14.8); White Blood Cell Count 6.4 X10^3/uL (4.5-11.0)
[2020-04-16 15:15] LABS: Alanine Aminotransferase 13 IU/L (<35); Albumin 4.2 g/dL (3.5-5.0); Albumin Globulin Ratio 1.4 (1.0-2.8); Alkaline Phosphatase 61 U/L (38-126); Aspartate Aminotransferase 22 IU/L (14-36); BUN Creatinine Ratio 22.1 (6-22); Bilirubin Total 0.3 mg/dL (0.2-1.3); Blood Urea Nitrogen 15 mg/dL (7-17); Calcium 8.8 mg/dL (8.4-10.2); Carbon Dioxide 26 mmol/L (22-32); Chloride 103 mmol/L (98-107); Estimated Glomerular Filt Rate > 60.0 mL/min (>60); Globulin 2.9 g/dL (1.7-4.1); Glucose 101 mg/dL (70-100); HEMOLYSIS < 15 (0-50); Potassium 3.6 mmol/L (3.4-5.1); Sodium 135 mmol/L (137-145); Total Protein 7.1 g/dL (6.3-8.2)
[2020-04-16 15:25] VITALS: BP 116/57; PULSE 94; RESP 18; O2SAT 100
[2020-04-16 15:27] LABS: Troponin I < 0.012 ng/mL (0.01-0.034)
== END 2020-04-16 16:12 | disposition home or self-care (01) ==
PROVIDERS: Emergency Provider Nurse Practitioner; PCP Nurse Practitioner
DX: R42 Dizziness and giddiness (principal); R07.9 Chest pain, unspecified
CPT/HCPCS: 36415; 70450; 80053; 84484; 85025; 93005; 93010; 96360; 99284

== ENCOUNTER → 2020-12-09 15:45 | Outpatient (CLI) | payer OTHER, SELFPAY ==
--- NOTE | 2020-12-09 | DI.RAD.S_ITS ---
PROCEDURE: XR TOE LT MIN 2V INDICATIONS: PAIN IN TOE OF LEFT FOOT TECHNIQUE: 3 views of the 2nd toe(s) acquired. COMPARISON: None. FINDINGS: Bones: No fractures or dislocations. No suspicious bony lesions. Soft tissues: No suspicious soft tissue densities. IMPRESSION: Unremarkable 2nd left toe radiographs Dictated by: Romel Redmond M.D. on 12/09/2020 at 17:46 Approved by: Romel Redmond M.D. on 12/09/2020 at 17:48
== END ==
PROVIDERS: PCP Nurse Practitioner; Referring Provider Podiatrist Foot & Ankle Surgery; Visit Provider Podiatrist Foot & Ankle Surgery
DX: M79.675 Pain in left toe(s) (principal)
CPT/HCPCS: 73660

== ENCOUNTER → 2021-01-24 16:35 | Outpatient (CLI) | payer OTHER, SELFPAY ==
[2021-01-24 17:12] LABS: COVID19 -Nasal RAPID Negative (Negative)
== END ==
PROVIDERS: PCP Nurse Practitioner; Visit Provider Physician Assistant
DX: Z20.822 Contact with and (suspected) exposure to COVID-19 (principal)
CPT/HCPCS: 87635

== ENCOUNTER 2021-04-10 15:46 | Emergency (ER) | payer OTHER, SELFPAY ==
[2021-04-10 15:54] VITALS: BP 147/96; PULSE 110; RESP 20; TEMP 37.2; O2SAT 100; BMI 25.0
[2021-04-10 16:42] LABS: Add Manual Diff / Slide Review NO; Basophils Absolute Auto 100 /uL (0-100); Eosinophils Absolute Auto 100 /uL (0-450); Eosinophils Percent Auto 2.3 % (2-4); Hematocrit 36.7 % (36-46); Hemoglobin 12.5 g/dL (12.0-16.0); Lymphocytes Absolute Auto 900 /uL (1100-4500); Lymphocytes Percent Auto 15.6 % (25-40); Mean Corpuscular HGB Conc 34.2 % (30-36); Mean Corpuscular Hemoglobin 30.3 PG (26-34); Mean Corpuscular Volume 88.5 fL (80-100); Monocytes Absolute Auto 300 /uL (0-900); Neutrophils Absolute Auto 4600 /uL (1500-7000); Neutrophils Percent Auto 76.1 % (50-75); Platelet Count 287 X10^3/uL (150-400); Red Blood Cell Count 4.15 X10^6/uL (4.0-5.2); Red Cell Distribution Width 12.6 % (11.6-14.8); White Blood Cell Count 6.1 X10^3/uL (4.5-11.0)
[2021-04-10 16:55] LABS: Alanine Aminotransferase 18 IU/L (<35); Albumin 4.6 g/dL (3.5-5.0); Albumin Globulin Ratio 1.5 (1.0-2.8); Alkaline Phosphatase 59 U/L (38-126); Aspartate Aminotransferase 30 IU/L (14-36); BUN Creatinine Ratio 13.8 (6-22); Bilirubin Total 0.5 mg/dL (0.2-1.3); Blood Urea Nitrogen 12 mg/dL (7-17); Calcium 9.4 mg/dL (8.4-10.2); Carbon Dioxide 25 mmol/L (22-32); Chloride 102 mmol/L (98-107); Estimated Glomerular Filt Rate > 60.0 mL/min (>60); Globulin 3.1 g/dL (1.7-4.1); Glucose 102 mg/dL (70-100); HEMOLYSIS < 15 (0-50); Lipase 60 U/L (23-300); Potassium 3.5 mmol/L (3.4-5.1); Sodium 138 mmol/L (137-145); Total Protein 7.7 g/dL (6.3-8.2)
[2021-04-10 17:11] LABS: Bacteria Urine None Seen; Culture Indicated Urine Cult Not Indicated; Mucus Urine 1+ (Negative); RBC Urine 0-1/HPF (0-5/HPF); Squamous Epithelial Cell Urine 0-1 /HPF (0-5/HPF); WBC Urine 0-1/HPF (0-5/HPF)
[2021-04-10 19:20] VITALS: BP 139/67; PULSE 95; RESP 20; O2SAT 100
[2021-04-10 19:43] VITALS: PULSE 90; O2SAT 100
--- NOTE | 2021-04-10 19:50 | PC.NURSE ---
pt states no abd pain at this time. has taken pain meds 3 hrs ago. States itching to incision mid abd. with area around incision redened with sm red bumps. all 4 incisions well approximated and other romero healing well.
[2021-04-10 20:00] VITALS: BP 128/78; PULSE 84; O2SAT 100
--- NOTE | 2021-04-10 20:11 | ED_ITS ---
HPI - General Adult General Chief complaint: Abdominal Pain Stated complaint: pain, possible fever s/p surgery Time Seen by Provider: 04/10/21 20:10 History of Present Illness HPI narrative: 35-year-old woman with laparoscopic cholecystectomy approximately a month ago presents complaining that she had a low-grade temperature in the 99.7 range, had our so episode of severe right upper quadrant pain that resolved with leave and describes significant burning itching around her epigastric laparoscopic portal site. She is quite anxious and is concerned that she may have ?rip something open?. She describes being very active but is very clear that she is not doing any heavy lifting. She also notes that she has PCOS and started her menstrual cycle recently. She has a follow-up visit with her surgeon in 4 days but the nurse on-call for her surgeon recommended that she come in for further evaluation. She had questions regarding possibility of bile leak. She describes nausea but no vomiting or diarrhea. No chest pain, palpitation, headache or actual vomiting. No recurrent pain and she is currently pain-free Related Data Home Medications Medication Instructions Recorded Confirmed cyclobenzaprine 5 mg tablet #0 02/13/17 01/24/21 Previous Rx's Medication Instructions Recorded epinephrine 0.3 mg/0.3 mL 0.3 mg INJ X1 #1 pkg 02/13/17 injection, auto-injector (EpiPen 2-Fabio) ondansetron 4 mg disintegrating 4 mg SUBLINGUAL Q6HP PRN #20 odt 02/13/17 tablet (Zofran ODT) ibuprofen 600 mg tablet 600 mg PO TID-QID PRN #20 tab 11/13/17 fluticasone propionate 50 1 spray NASAL BID #15.8 ml 05/04/19 mcg/actuation nasal spray,suspension (Flonase Allergy Relief) cyclobenzaprine 10 mg tablet 10 mg PO TID PRN #15 tab 10/27/19 ibuprofen 600 mg tablet 600 mg PO QID PRN #20 tab 10/27/19 ketorolac 10 mg tablet 10 mg PO Q6H PRN #20 tab 04/14/20 hydrocortisone 2.5 % topical cream 1 applic TOPICAL BID PRN #90 g 06/16/20 hydroxyzine HCl 25 mg tablet 25 mg PO BEDTIME PRN #7 tab 06/16/20 Allergies Allergy/AdvReac Type Severity Reaction Status Date / Time hydrochlorothiazide Allergy Severe angioedema Verified 01/24/21 16:39 spironolactone Allergy Unknown Verified 01/24/21 16:39 Review of Systems Review of Systems Narrative: Remainder of complete review of systems is otherwise unremarkable except for that included in the HPI. Patient History Medical History (Updated 04/10/21 @ 20:29 by Tanesha Engel MD) Ocular migraine PCOS (polycystic ovarian syndrome) Surgical History (Updated 04/10/21 @ 20:24 by Tanesha Engel MD) Hx of cholecystectomy Social History Smoking Status: Never smoker Smoking Status: Never smoker alcohol intake frequency: a few times a week Substance Use Type: does not use Exam Narrative Exam Narrative: General: Healthy appearing, in no acute distress. Able to give a complete and coherent history. Well-nourished well-developed HEENT: Moist mucous membranes, normal sclera with reactive pupils, Respiratory: Lungs are clear to auscultation, no wheezing no rales no rhonchi. Full and symmetrical air movement Cardiac: Regular rate and rhythm no murmurs no bruits Abdomen: Soft, nontender, good bowel tones, her laparoscopic sites seem to be healing nicely. The epigastric 1 has some minor irritation without evidence of cellulitis or infection. She has specifically, no tenderness in the right upper quadrant no rebound, no guarding. No flank pain. Skin: Warm and dry, no rashes, no jaundice Neurologic: Grossly neurologically intact with no obvious asymmetries or abn ormalities Extremities: No trauma, well perfused Psych: Cooperative, anxious, appropriate insight Initial Vital Signs Initial Vital Signs: Vital Signs Temperature 99 F 04/10/21 15:54 Pulse Rate 110 H 04/10/21 15:54 Respiratory Rate 20 04/10/21 15:54 Blood Pressure 147/96 H 04/10/21 15:54 Pulse Oximetry 100 04/10/21 15:54 Course Orders Ordered: ED Orders 04/10/21 16:02 EKG-12 Lead Stat 04/10/21 16:17 Complete Blood Count AUTO DIFF Stat Comprehensive Metabolic Panel Stat Lipase Stat 04/10/21 16:43 Urine Microscopic Stat Vital Signs Vital signs: Vital Signs - 8 hr 04/10/21 15:54 04/10/21 19:20 Temperature 99 F Pulse Rate 110 H 95 H Respiratory Rate 20 20 Blood Pressure 147/96 H 139/67 Pulse Oximetry 100 100 Medical Decision Making Lab Data Result diagrams: 04/10/21 16:17 04/10/21 16:17 Labs: Lab Results 04/10/21 04/10/21 04/10/21 Range/Units 16:17 16:17 16:43 WBC 6.1 (4.5-11.0) X10^3/uL RBC 4.15 (4.0-5.2) X10^6/uL Hgb 12.5 (12.0-16.0) g/dL Hct 36.7 (36-46) % MCV 88.5 (80-100) fL MCH 30.3 (26-34) PG MCHC 34.2 (30-36) % RDW 12.6 (11.6-14.8) % Plt Count 287 (150-400) X10^3/uL Neut % (Auto) 76.1 H (50-75) % Lymph % (Auto) 15.6 L (25-40) % [place] % (Auto) 5.0 (3-14) % Eos % (Auto) 2.3 (2-4) % Baso % (Auto) 1.0 (0-2) % Neut # (Auto) 4600 (8955-8306) /uL Lymph # (Auto) 900 L (2323-9121) /uL [place] # (Auto) 300 (0-900) /uL Eos # (Auto) 100 (0-450) /uL Baso # (Auto) 100 (0-100) /uL Sodium 138 (137-145) mmol/L Potassium 3.5 (3.4-5.1) mmol/L Chloride 102 (98-107) mmol/L Carbon Dioxide 25 (22-32) mmol/L BUN 12 (7-17) mg/dL Creatinine 0.87 (0.52-1.04) mg/dL Estimated GFR > 60.0 (>60) mL/min BUN/Creatinine Ratio 13.8 (6-22) Glucose 102 H (70-100) mg/dL Calcium 9.4 (8.4-10.2) mg/dL Total Bilirubin 0.5 (0.2-1.3) mg/dL AST 30 (14-36) IU/L ALT 18 (<35) IU/L Alkaline Phosphatase 59 (38-126) U/L Total Protein 7.7 (6.3-8.2) g/dL Albumin 4.6 (3.5-5.0) g/dL Globulin 3.1 (1.7-4.1) g/dL Albumin/Globulin Ratio 1.5 (1.0-2.8) Lipase 60 (23-300) U/L Urine RBC 0-1/hpf (0-5/HPF) Urine WBC 0-1/hpf (0-5/HPF) Ur Squamous Epith Cells 0-1 /hpf (0-5/HPF) Urine Bacteria None seen (None) Urine Mucus 1+ H (Negative) Ur Culture Indicated? Cult not indicated Point of Care Testing Test Results Negative Urine Dip Bedside Urine Glucose Negative Bedside Urine Bilirubin - Negative Bedside Urine Ketone ++ 40 Urine Specific Wilder 1.030 Bedside Urine Occult Blood - Negative Bedside Urine pH 6.0 Bedside Urine Protein + 30 Bedside Urine Urobilinogen - Negative Bedside Urine Nitrite - Negative Bedside Urine Leukocytes - Negative Esterase Point of care testing: Point of Care Testing Test Results Negative Urine Dip Bedside Urine Glucose Negative Bedside Urine Bilirubin - Negative Bedside Urine Ketone ++ 40 Urine Specific Wilder 1.030 Bedside Urine Occult Blood - Negative Bedside Urine pH 6.0 Bedside Urine Protein + 30 Bedside Urine Urobilinogen - Negative Bedside Urine Nitrite - Negative Bedside Urine Leukocytes - Negative Esterase [facility] Narrative Medical decision making narrative: 35-year-old woman 1 month post laparoscopic cholecystectomy with minor irritation around the epigastric portal site that is not infected and is responding to topical steroids. A brief episode of right upper quadrant pain and a increase in temperature in the 99 range comes in for further evaluation. No evidence of surgical complications, urinary tract infection, pyelonephritis. Clinical exam does not suggest evidence of a bile leak or any abdominal infection. Have suggested she continue to use the topical steroid for the itching around the epigastric port site. I suspect that starting her menstrual cycle particularly in light of the fact that she has polycystic ovary disease is contributing to some of the pain she is experiencing now. Reassurance is given. She is given copies of her lab work from today to share with her surgeon at the visit scheduled 4 days in the future. Discharge Plan Departure Patient Disposition: Home Clinical Impression: Dermatitis, Post-op pain Instructions: DI for Laparoscopic Cholecystectomy Activity Restrictions/Additional Instructions: Thank you for coming in today Your lab work was reassuring and there is no evidence of any internal infection or surgical complications. The itching around the scar in the middle of your abdomen does appear to be a superficial irritation and topical steroids as you are currently using are 100% appropriate to use. If you have new or worsening symptoms, please feel free to return to the emergency department. I hope you continue to heal nicely. Prescriptions: No Action fluticasone propionate [Flonase Allergy Relief] 50 mcg/actuation spray,suspension 1 spray NASAL BID Qty: 15.8 RF: 0 hydroxyzine HCl 25 mg tablet 25 mg PO BEDTIME PRN (Reason: itching) Qty: 7 RF: 0 hydrocortisone 2.5 % cream 1 applic topical BID PRN (Reason: itching) Qty: 90 RF: 0 cyclobenzaprine 5 MG tablet Qty: 0 RF: 0 epinephrine [EpiPen 2-Fabio] 0.3 MG/0.3 ML auto-injector 0.3 mg INJ X1 Qty: 1 RF: 0 ondansetron [Zofran ODT] 4 MG tablet,disintegrating 4 mg Sublingual Q6HP PRNQty: 20 RF: 0 ibuprofen 600 mg tablet 600 mg PO QID PRN (Reason: pain) Qty: 20 RF: 0 cyclobenzaprine 10 mg tablet 10 mg PO TID PRN (Reason: muscle spasm) Qty: 15 RF: 0 ketorolac 10 mg tablet 10 mg PO Q6H PRN (Reason: pain) Qty: 20 RF: 0 ibuprofen 600 mg tablet 600 mg PO TID-QID PRN (Reason: pain) Qty: 20 RF: 0 Referrals: Calvin Urrutia FNP-C [Primary Care Provider] -
[2021-04-10 20:30] VITALS: BP 116/80; PULSE 82; O2SAT 100
== END 2021-04-10 20:48 | disposition home or self-care (01) ==
PROVIDERS: Emergency Medicine; Emergency Provider Emergency Medicine; PCP Nurse Practitioner
DX: L30.9 Dermatitis, unspecified (principal); G89.18 Other acute postprocedural pain; R03.0 Elevated blood-pressure reading, without diagnosis of hypertension
CPT/HCPCS: 36415; 80053; 81003; 81015; 81025; 83690; 85025; 93005; 93010; 99283; 99284

== ENCOUNTER 2021-08-30 22:30 | Emergency (ER) | payer OTHER, SELFPAY ==
[2021-08-30 22:43] VITALS: BP 152/70; PULSE 108; RESP 15; TEMP 36.6; O2SAT 100; BMI 25.7
--- NOTE | 2021-08-30 22:43 | DI.CT.S_ITS ---
PROCEDURE: CT STROKE INDICATIONS: hx migraines, resolved right side tingling/heavy TECHNIQUE: Noncontrast 4.5 mm thick angled axial sections acquired from the foramen magnum to the vertex, with coronal reformats. For radiation dose reduction, the following was used: automated exposure control, adjustment of mA and/or kV according to patient size. COMPARISON: None. FINDINGS: Image quality: Excellent. CSF spaces: Basal cisterns are patent. No extra-axial fluid collections. Ventricles are normal in size and shape. Brain: No midline shift. No intracranial masses or hemorrhage. [place]os-white matter interface is normal. Skull and face: Calvarium and visualized facial bones are intact, without suspicious lesions. Sinuses: Visualized sinuses and mastoids are clear. IMPRESSION: No acute intracranial disease process. Findings telephoned to Dr. Pritchard on August 30, 2021 at 11:15 a.m.. This study fulfills neurological imaging criteria for inclusion or exclusion of acute stroke therapies based on available published neurological imaging guidelines. Dictated by: Jackelyn Seals MD, PhD on 08/30/2021 at 23:13 Approved by: Jackelyn Seals MD, PhD on 08/30/2021 at 23:17
--- NOTE | 2021-08-30 22:43 | DI.CT.S_ITS ---
PROCEDURE: CT ANGIO HEAD AND NECK INDICATIONS: had migraine, resolved, right side tingling/heavy TECHNIQUE: After the administration of intravenous contrast, 1 mm thick sections acquired from the aortic arch through the [place] of [place]. Post-contrast 4.5 mm thick sections then re-acquired from the foramen magnum to the vertex. 3-dimensional [id number] (MIP) and/or volume rendering reformats were acquired of the central intracranial vasculature and neck separately. COMPARISON: [facility], CT, CT STROKE, 08/30/2021, 22:57. [facility], CT, CT BRAIN WO CON, 02/18/2017, 13:36. FINDINGS: Image quality: Excellent. BRAIN: CSF spaces: Ventricles are normal in size and shape. Basal cisterns are patent. No extra-axial fluid collections. Brain: No midline shift. No intracranial bleeds or masses. [place]os-white matter interface appears intact. Skull and face: Calvarium and facial bones appear intact, without suspicious lesions. Orbits appear normal. Sinuses: Sinuses and mastoids are clear. HEAD CT ANGIOGRAPHY: Anterior circulation: Intracranial internal carotid arteries are normal in size and flow. The flow within the paired anterior cerebral arteries is normal and symmetric. The flow within the middle cerebral arteries is normal and symmetric. The anterior communicating artery is seen. No aneurysms are seen. Posterior circulation: Visualized portions of the vertebral arteries demonstrate normal caliber, and join to form a normal appearing basilar artery. Flow within the posterior cerebral arteries is normal and symmetric. No aneurysms are seen. Dural sinuses demonstrate normal postcontrast enhancement. NECK CT ANGIOGRAPHY: Carotid system: The great vessels demonstrate a conventional anatomy as they arise from the aortic arch. The origins of the common carotid arteries appear patent. The common carotid arteries demonstrate normal caliber and courses. The bifurcation regions are both widely patent. The internal carotid arteries demonstrate normal calibers and courses. Posterior circulation: The origins of the vertebral arteries both appear widely patent. The more superior extracranial portions of both vertebral arteries also demonstrate normal courses and calibers. They join to form a normal appearing basilar artery. Soft tissues: Visualized neck soft tissues demonstrate no suspicious abnormalities. Bones: No suspicious bony lesions. Visualized cervical spine appears normally aligned. IMPRESSION: 1. No acute intracranial disease process. 2. No large vessel occlusion, vascular stenosis, vascular dissection or aneurysm. Any quantitative measurements of stenosis were performed using NASCET criteria. Dictated by: Jackelyn Seals MD, PhD on 08/30/2021 at 23:17 Approved by: Jackelyn Seals MD, PhD on 08/30/2021 at 23:22
[2021-08-30 23:08] VITALS: PULSE 98; O2SAT 100
[2021-08-30 23:08] LABS: Add Manual Diff / Slide Review NO; Basophils Absolute Auto 0 /uL (0-100); Basophils Percent Auto 0.8 % (0-2); Eosinophils Absolute Auto 200 /uL (0-450); Eosinophils Percent Auto 3.1 % (2-4); Hematocrit 35.7 % (36-46); Lymphocytes Absolute Auto 1500 /uL (1100-4500); Lymphocytes Percent Auto 25.3 % (25-40); Mean Corpuscular HGB Conc 33.7 % (30-36); Mean Corpuscular Hemoglobin 30.3 PG (26-34); Monocytes Absolute Auto 500 /uL (0-900); Monocytes Percent Auto 8.5 % (3-14); Neutrophils Absolute Auto 3700 /uL (1500-7000); Neutrophils Percent Auto 62.3 % (50-75); Platelet Count 296 X10^3/uL (150-400); Red Blood Cell Count 3.97 X10^6/uL (4.0-5.2)
[2021-08-30 23:10] VITALS: BP 126/64; PULSE 98; RESP 20; O2SAT 100
[2021-08-30 23:13] LABS: BUN Creatinine Ratio 15.2 (6-22); Blood Urea Nitrogen 12 mg/dL (7-17); Carbon Dioxide 29 mmol/L (22-32); Chloride 104 mmol/L (98-107); Estimated Glomerular Filt Rate > 60.0 mL/min (>60); Glucose 114 mg/dL (70-100); HEMOLYSIS < 15 (0-50); Potassium 3.7 mmol/L (3.4-5.1); Sodium 139 mmol/L (137-145)
[2021-08-30] MEDS: SODIUM CHLORIDE 0.9% 1,000 ML 150 ML IV (23:19)
[2021-08-30 23:30] VITALS: BP 119/57; PULSE 85; RESP 13; O2SAT 100
[2021-08-31] VITALS: BP 118/58; PULSE 84; RESP 14; O2SAT 100
--- NOTE | 2021-08-31 00:21 | ED_ITS ---
HPI - Neuro Symptoms/Deficit General Chief Complaint: Neuro Symptoms/Deficit Stated Complaint: Hx of oculur migraine/dizzy/right sided heaviness Time Seen by Provider: 08/30/21 22:43 Source: patient Mode of arrival: Ambulatory Limitations: no limitations History of Present Illness HPI Narrative: This is a 36-year-old female with a history of ocular migraines, PCOS, endometriosis and COVID infection in June. Patient states she had her typical ocular migraine earlier today, it lasted for about 2-1/2 hours. She took her neurotriptan which resolved her symptoms. Couple hours later she developed a sense of heaviness on her right side in her leg arm and tingling and paresthesias in the right leg arm and face. Patient states she has had similar symptoms in the past when she is having her migraines but not after they have resolved. She denies headache. She denies any ocular migraine symptoms otherwise. She had nausea today but no vomiting. She denies fevers or chills. She states she was able to ambulate normally. She felt spacey today. She denies any chest pain or shortness of breath. No issues with bowel movements or urination. She does follow regularly with a neurologist she states she had an MRI in the last couple weeks for evaluation. She states that she is going to be following with a customer facilities supervisor in the next week because she has had persistent coughing fits the last 1/2 hour to an hour after her COVID infection. She has had a cholecystectomy. She has allergies to hydrochlorothiazide and spironolactone. No tobacco, occasional alcohol, no illicit. On Anticoagulants: No Related Data Home Medications Medication Instructions Recorded Confirmed cyclobenzaprine 5 mg tablet #0 02/13/17 01/24/21 Previous Rx's Medication Instructions Recorded epinephrine 0.3 mg/0.3 mL 0.3 mg (0.3 mL) INJ X1 #1 pkg 02/13/17 injection, auto-injector (EpiPen 2-Fabio) ondansetron 4 mg disintegrating 4 mg SUBLINGUAL Q6HP PRN #20 odt 02/13/17 tablet (Zofran ODT) ibuprofen 600 mg tablet 600 mg PO TID-QID PRN #20 tab 11/13/17 fluticasone propionate 50 1 spray NASAL BID #15.8 ml 05/04/19 mcg/actuation nasal spray,suspension (Flonase Allergy Relief) cyclobenzaprine 10 mg tablet 10 mg PO TID PRN #15 tab 10/27/19 ibuprofen 600 mg tablet 600 mg PO QID PRN #20 tab 10/27/19 ketorolac 10 mg tablet 10 mg PO Q6H PRN #20 tab 04/14/20 hydrocortisone 2.5 % topical cream 1 applic TOPICAL BID PRN #90 g 06/16/20 hydroxyzine HCl 25 mg tablet 25 mg PO BEDTIME PRN #7 tab 06/16/20 Allergies Allergy/AdvReac Type Severity Reaction Status Date / Time hydrochlorothiazide Allergy Severe angioedema Verified 01/24/21 16:39 spironolactone Allergy Unknown Verified 01/24/21 16:39 Review of Systems Review of Systems ROS Unobtainable: All systems reviewed & are unremarkable except as noted in HPI and below Hematologic/Lymphatic On Anticoagulants: No Patient History Medical History Ocular migraine PCOS (polycystic ovarian syndrome) Surgical History Hx of cholecystectomy Social History Smoking Status: Never smoker Smoking Status: Never smoker alcohol intake frequency: a few times a week Substance Use Type: does not use Exam Narrative Exam Narrative: GEN: well nourished, well appearing female, alert and oriented x 3, patient appears to be in mild distress. HEENT: Atraumatic, pupils are equal round reactive to light, no nystagmus, extraocular movements are intact, nares are clear, TMs are clear with no fluid, there is no conjunctival pallor. Throat is clear without any exudates, eryth randa, tonsillar enlargement or uvular deviation, no facial droop. HEART: Regular rate and rhythm without murmur, clicks, rubs. LUNGS:Lungs clear to auscultation, no wheezes, rales, crackles, chest moves symmetrically ABD:bowel sounds normal, soft, non-tender, no guarding, rebound, rigidity, no masses noted, no hepatosplenomegaly MSCL: Non-tender, no muscle atrophy, muscles strength 5/5 upper and lower extremities, full range of motion, normal gait NEURO:CN 2-12 intact, sensation normal,finger nose finger test normal, heel winn test normal, romberg normal SKIN: No rash, erythema or other skin changes noted. Initial Vital Signs Initial Vital Signs: Vital Signs Temperature 97.9 F 08/30/21 22:43 Pulse Rate 108 H 08/30/21 22:43 Respiratory Rate 15 08/30/21 22:43 Blood Pressure 152/70 H 08/30/21 22:43 Pulse Oximetry 100 08/30/21 22:43 Scores NIH Stroke Scale Level of Conciousness: Alert, keenly responsive Ask month/age: Answers both questions correctly. Open/close eyes, close hand: Performs both tasks correctly Best gaze horizontal: Normal Visual garay: No visual loss Facial palsy: Normal symetrical movement Left arm drift: No drift for full 10 sec Right arm drift: No drift for full 10 sec Left leg drift: No drift for full 5 sec Right leg drift: No drift for full 5 sec Limb ataxia: Absent Sensory on face/arms/legs: Mild to moderate sensory loss, can tell touch Best language: No aphasia, normal Dysarthria: Normal Extinction or inattention: No abnormality Total NIH Stroke scale score: 1 Course Orders Ordered: ED Orders 08/30/21 22:[address] angio head and neck Stat Urine Drug Screen, Rapid Stat EKG-12 Lead Stat 08/30/21 22:55 Basic Metabolic Panel Stat Complete Blood Count AUTO DIFF Stat Discontinued Medications Sodium Chloride (Normal Saline 0.9%) 1,000 mls @ 150 mls/hr IV CONT FLOR Last Admin: 08/30/21 23:19 Dose: 150 mls/hr Documented by: CASIMIRO Vital Signs Vital signs: Vital Signs - 8 hr 08/30/21 22:43 08/30/21 23:08 08/30/21 23:10 Temperature 97.9 F Pulse Rate 108 H 98 H 98 H Respiratory Rate 15 20 Blood Pressure 152/70 H 126/64 Pulse Oximetry 100 100 100 08/30/21 23:30 08/31/21 00:00 08/31/21 00:30 Temperature Pulse Rate 85 84 89 Respiratory Rate 13 14 39 H Blood Pressure 119/57 L 118/58 L Pulse Oximetry 100 100 99 08/31/21 00:31 Temperature Pulse Rate 87 Respiratory Rate 25 H Blood Pressure 114/54 L Pulse Oximetry 99 MDM - Neuro Symptoms/Deficit Lab Data Result diagrams: 08/30/21 22:55 08/30/21 22:55 Labs: Lab Results 08/30/21 08/30/21 Range/Units 22:55 22:55 WBC 6.0 (4.5-11.0) X10^3/uL RBC 3.97 L (4.0-5.2) X10^6/uL Hgb 12.0 (12.0-16.0) g/dL Hct 35.7 L (36-46) % MCV 90.0 (80-100) fL MCH 30.3 (26-34) PG MCHC 33.7 (30-36) % RDW 13.0 (11.6-14.8) % Plt Count 296 (150-400) X10^3/uL Neut % (Auto) 62.3 (50-75) % Lymph % (Auto) 25.3 (25-40) % Yell % (Auto) 8.5 (3-14) % Eos % (Auto) 3.1 (2-4) % Baso % (Auto) 0.8 (0-2) % Neut # (Auto) 3700 (1814-6027) /uL Lymph # (Auto) 1500 (4524-4052) /uL Yell # (Auto) 500 (0-900) /uL Eos # (Auto) 200 (0-450) /uL Baso # (Auto) 0 (0-100) /uL Sodium 139 (137-145) mmol/L Potassium 3.7 (3.4-5.1) mmol/L Chloride 104 (98-107) mmol/L Carbon Dioxide 29 (22-32) mmol/L BUN 12 (7-17) mg/dL Creatinine 0.79 (0.52-1.04) mg/dL Estimated GFR > 60.0 (>60) mL/min BUN/Creatinine Ratio 15.2 (6-22) Glucose 114 H (70-100) mg/dL Calcium 9.0 (8.4-10.2) mg/dL Imaging Data CT scan - head: Radiologist's Impression: Launch?[address] [address] [address] Scan Report Signed Patient: Shasta Weinstein MR#: [id number] : 1985 Acct:[id number] Age/Sex: 36 / F Date of Service: 08/30/21 Loc: ED Accession Number: [id number] ?? Procedure: CT Stroke Ordering Provider: Azul Pritchard D.O. PROCEDURE:? CT STROKE ? INDICATIONS:? hx migraines, resolved right side tingling/heavy ? TECHNIQUE:? Noncontrast 4.5 mm thick angled axial sections acquired from the foramen magnum to the vertex, with coronal reformats.? For radiation dose reduction, the following was used:? automated exposure control, adjustment of mA and/or kV according to patient size.? ? COMPARISON:? None. ? FINDINGS:? Image quality:? Excellent.? ? CSF spaces:? Basal cisterns are patent.? No extra-axial fluid collections.? Ventricles are normal in size and shape.? ? Brain:? No midline shift.? No intracranial masses or hemorrhage.? Avalos-white matter interface is normal.? ? Skull and face:? Calvarium and visualized facial bones are intact, without suspicious lesions.? ? Sinuses:? Visualized sinuses and mastoids are clear.? ? IMPRESSION:? No acute intracranial disease process. ? Findings telephoned to Dr. Pritchard on August 30, 2021 at 11:15 a.m.. ? This study fulfills neurological imaging criteria for inclusion or exclusion of acute stroke therapies based on available published neurological imaging guidelines.? ? ? Dictated by: Jackelyn Seals MD, PhD on 08/30/2021 at 23:13 ? ? Approved by: Jackelyn Seals MD, PhD on 08/30/2021 at 23:17? CTA - brain/neck: Radiologist's Impression: Launch?[place] [address] CT Scan Report Signed Patient: Shasta Weinstein MR#: [id number] : 1985 Acct:[id number] Age/Sex: 36 / F Date of Service: 08/30/21 Loc: ED Accession Number: [id number] ?? Procedure: CT angio head and neck Ordering Provider: Azul Pritchard D.O. PROCEDURE:? CT ANGIO HEAD AND NECK ? INDICATIONS:? had migraine, resolved, right side tingling/heavy ? TECHNIQUE:? After the administration of intravenous contrast, 1 mm thick sections acquired from the aortic arch through the [place] of [place].? Post-contrast 4.5 mm thick sections then re-acquired from the foramen magnum to the vertex.? 3-dimensional pbsefaz-voqxjkfjw-ooctxpibmf (MIP) and/or volume rendering reformats were acquired of the central intracranial vasculature and neck separately. ? COMPARISON:? [facility], CT, CT STROKE, 08/30/2021, 22:57.? [facility], CT, CT BRAIN WO CON, 02/18/2017, 13:36. ? FINDINGS:? Image quality:? Excellent.? ? BRAIN:? CSF spaces:? Ventricles are normal in size and shape.? Basal cisterns are patent.? No extra-axial fluid collections.? ? Brain:? No midline shift.? No intracranial bleeds or masses.? Avalos-white matter interface appears intact.? ? Skull and face:? Calvarium and facial bones appear intact, without suspicious lesions.? Orbits appear normal.? ? Sinuses:? Sinuses and mastoids are clear.? ? HEAD CT ANGIOGRAPHY:? Anterior circulation:? Intracranial internal carotid arteries are normal in size and flow.? The flow within the paired anterior cerebral arteries is normal and symmetric.? The flow within the middle cerebral arteries is normal and symmetric.? The anterior communicating artery is seen.? No aneurysms are seen.? ? Posterior circulation:? Visualized portions of the vertebral arteries demonstrate normal caliber, and join to form a normal appearing basilar artery.? Flow within the posterior cerebral arteries is normal and symmetric.? No aneurysms are seen.? ? Dural sinuses demonstrate normal postcontrast enhancement.? ? NECK CT ANGIOGRAPHY:? Carotid system:? The great vessels demonstrate a conventional anatomy as they arise from the aortic arch.? The origins of the common carotid arteries appear patent.? The common carotid arteries demonstrate normal caliber and courses.? The bifurcation regions are both widely patent.? The internal carotid arteries demonstrate normal calibers and courses.? ? Posterior circulation:? The origins of the vertebral arteries both appear widely patent.? The more superior extracranial portions of both vertebral arteries also demonstrate normal courses and calibers.? They join to form a normal appearing basilar artery.? ? Soft tissues:? Visualized neck soft tissues demonstrate no suspicious abnormali ties.? ? Bones:? No suspicious bony lesions.? Visualized cervical spine appears normally aligned.? IMPRESSION:? ? 1. No acute intracranial disease process. ? 2. No large vessel occlusion, vascular stenosis, vascular dissection or aneurysm. ? ? Any quantitative measurements of stenosis were performed using NASCET criteria.? ? ? Dictated by: Jackelyn Seals MD, PhD on 08/30/2021 at 23:17 ? ? Approved by: Jackelyn Seals MD, PhD on 08/30/2021 at 23:22? MDM Narrative Medical decision making narrative: This is a 36-year-old female with complaint of ocular migraine history who developed right-sided numbness tingling and heaviness sensation but normal movement. Patient has an NIH of 1 for altered sensation to light touch on the right side. Patient had head CT and angiography which are negative. She is not having any migraine symptoms at this time and states that the timing was atypical she has gotten symptoms similar while having her migraines but not afterwards. Discussed with patient the only way to truly rule out a stroke is to have an MRI which is unavailable. She was offered observation with plan for MRI in the morning. Patient defers in prefers to return home we discussed that I suspect this is likely related to her migraines but that I cannot rule out a stroke. Patient expresses her understanding. She does follow with Neurology regularly. Return precautions discussed. Discharge Plan Departure Patient Disposition: Home Clinical Impression: Paresthesias Activity Restrictions/Additional Instructions: I suspect your paresthesias and symptoms are secondary to your migraines. There is a possibility that it could be a TIA or stroke this can only be fully ruled out with an MRI. As you have elected to return home if you have persistent symptoms follow up to obtain an MRI. Follow-up with your neurologist, discussed your symptoms. You may continue home medications as prescribed. Please return for new or worsening symptoms, speech changes, inability to lift or move your extremities, walk, changing or atypical headaches or migraines, persistent vomiting, passing out or other new or concerning symptoms. Prescriptions: No Action fluticasone propionate [Flonase Allergy Relief] 50 mcg/actuation spray,suspension 1 spray NASAL BID Qty: 15.8 0RF Rx Instructions: administer 1 spray into each nostril twice a day hydroxyzine HCl 25 mg tablet 25 mg PO BEDTIME PRN (Reason: itching) Qty: 7 0RF hydrocortisone 2.5 % cream 1 applic topical BID PRN (Reason: itching) Qty: 90 0RF cyclobenzaprine 5 MG tablet Qty: 0 0RF epinephrine [EpiPen 2-Fabio] 0.3 MG/0.3 ML auto-injector 0.3 mg INJ X1 Qty: 1 0RF ondansetron [Zofran ODT] 4 MG tablet,disintegrating 4 mg Sublingual Q6HP PRNQty: 20 0RF ibuprofen 600 mg tablet 600 mg PO QID PRN (Reason: pain) Qty: 20 0RF cyclobenzaprine 10 mg tablet 10 mg PO TID PRN (Reason: muscle spasm) Qty: 15 0RF ketorolac 10 mg tablet 10 mg PO Q6H PRN (Reason: pain) Qty: 20 0RF ibuprofen 600 mg tablet 600 mg PO TID-QID PRN (Reason: pain) Qty: 20 0RF Referrals: Calvin Urrutia FNP-C [Primary Care Provider] -
[2021-08-31 00:30] VITALS: PULSE 89; RESP 39; O2SAT 99
[2021-08-31 00:31] VITALS: BP 114/54; PULSE 87; RESP 25; O2SAT 99
== END 2021-08-31 00:52 | disposition home or self-care (01) ==
PROVIDERS: Emergency Provider Emergency Medicine; PCP Nurse Practitioner
DX: R20.2 Paresthesia of skin (principal)
CPT/HCPCS: 36415; 70450; 70496; 70498; 80048; 85025; 99284; 99285; Q9967

== ENCOUNTER 2021-09-15 07:44 | Observation (INO) | payer OTHER, SELFPAY ==
[2021-09-15] VITALS (15 sets, daily range): BP systolic 101–137; BP diastolic 58–88; PULSE 79–124; RESP 16–20; TEMP 36.7–37.1; O2SAT 99–100; BMI 25.7; BMI 25.8
--- NOTE | 2021-09-15 08:00 | ED_ITS ---
HPI - General Adult General Chief complaint: Abdominal Pain Stated complaint: sent from [facility], right side abd pain, Face/Lip swell Time Seen by Provider: 09/15/21 07:48 Source: patient Mode of arrival: Ambulatory Limitations: no limitations History of Present Illness HPI narrative: Patient is a 36-year-old female. Does have a history of angioedema which he states was caused by hydrochlorothiazide and spironolactone. This was several years ago. She was sent over from the walk-in clinic for evaluation of swelling to her lower lip and also severe right upper quadrant abdominal discomfort. All of her symptoms seem to have started within the past 24 hours. She has had her gallbladder removed and the abdominal discomfort she is having is in this area. No diarrhea. No urinary symptoms. No new medications. No exposures. Was nauseous last evening but no vomiting. She is not having problems breathing. S he does feel that the swelling of her lower lip has worsened since last night. She did take some Benadryl without any improvement of her symptoms. She is on supplements for issues that she has been having since her gallbladder has been removed but none of these supplements or new. She has also been having a chronic cough after having COVID earlier this year. She is on an inhaler for this but she states it does not seem to be improving her symptoms much. Related Data Home Medications Medication Instructions Recorded Confirmed albuterol sulfate 90 mcg/actuation 1 puff INHALATION PRN PRN 09/15/21 09/15/21 aerosol inhaler clindamycin phosphate 1 % topical 1 applic TOPICAL DAILY 09/15/21 09/15/21 solution naratriptan 2.5 mg tablet 12.5 mg PO PRN PRN 09/15/21 09/15/21 Previous Rx's Medication Instructions Recorded ibuprofen 600 mg tablet 600 mg PO TID-QID PRN #20 tab 11/13/17 cyclobenzaprine 10 mg tablet 10 mg PO TID PRN #15 tab 10/27/19 hydrocortisone 2.5 % topical cream 1 applic TOPICAL BID PRN #90 g 06/16/20 Allergies Allergy/AdvReac Type Severity Reaction Status Date / Time hydrochlorothiazide Allergy Severe angioedema Verified 09/15/21 07:58 spironolactone Allergy Unknown Verified 09/15/21 07:58 Review of Systems Review of Systems ROS Unobtainable: All systems reviewed & are unremarkable except as noted in HPI and below Patient History Medical History Angioedema Ocular migraine PCOS (polycystic ovarian syndrome) Surgical History Hx of cholecystectomy Social History household members: none Smoking Status: Never smoker Smoking Status: Never smoker alcohol intake frequency: a few times a week Substance Use Type: does not use Exam Initial Vital Signs Initial Vital Signs: Vital Signs Pulse Rate 123 H 09/15/21 07:55 Pulse Oximetry 100 09/15/21 07:55 Const General: cooperative, comfortable, well developed and well groomed HENMT Mouth: tongue normal, moist mucous membranes and lip abnormal (Swelling to the lower lip and left side of upper lip.) Neck Neck: normal visual inspection Resp Effort & Inspection: normal respiratory effort Auscultation: clear to auscultation bilaterally Cardio Rate: regular rate Rhythm: regular rhythm GI Palpation: soft and tender (Right upper quadrant) Back/Spine/Pelvis Back: No CVA tenderness Skin General: no rashes or lesions noted Neuro General: patient alert, patient awake, patient oriented x3 and moves all extremities Speech: speech normal Gait: normal gait Extrem General: normal to inspection and capillary refill normal Psych Appearance: grossly normal Course Orders Ordered: ED Orders 09/15/21 08:44 CT abdomen pelvis w con Stat Sodium Chloride (Normal Saline 0.9%) 1,000 mls @ 125 mls/hr IV CONT FLOR Last Infusion: 09/15/21 10:25 Dose: 0 mls/hr Documented by: Admin: 09/15/21 08:23 Dose: 125 mls/hr Documented by: PAUL Methylprednisolone (Methylprednisolone 125 Mg/2 Ml Vial) 125 mg IV DAILY FLOR Discontinued Medications Diphenhydramine HCl (Diphenhydramine 50 Mg/Ml Vial) 25 mg IV NOW ONE Stop: 09/15/21 08:02 Last Admin: 09/15/21 08:23 Dose: 25 mg Documented by: PAUL Methylprednisolone (Methylprednisolone 125 Mg/2 Ml Vial) 125 mg IV NOW ONE Stop: 09/15/21 08:02 Last Admin: 09/15/21 08:23 Dose: 125 mg Documented by: PAUL Vital Signs Vital signs: Vital Signs - 8 hr 09/15/21 07:58 Temperature 98.0 F Pulse Rate 115 H Respiratory Rate 20 Blood Pressure 136/88 Pulse Oximetry 100 Medical Decision Making Medical Records Medical records reviewed: Yes I reviewed the patient's medical records. Lab Data Lab results reviewed: Yes I reviewed the patient's lab results. Result diagrams: 09/15/21 08:12 09/15/21 08:12 Labs: Lab Results 09/15/21 09/15/21 09/15/21 Range/Units 08:12 08:12 08:12 WBC 5.0 (4.5-11.0) X10^3/uL RBC 4.21 (4.0-5.2) X10^6/uL Hgb 12.8 (12.0-16.0) g/dL Hct 37.8 (36-46) % MCV 89.9 (80-100) fL MCH 30.5 (26-34) PG MCHC 33.9 (30-36) % RDW 13.0 (11.6-14.8) % Plt Count 235 (150-400) X10^3/uL Neut % (Auto) 75.9 H (50-75) % Lymph % (Auto) 13.6 L (25-40) % Waldo % (Auto) 6.2 (3-14) % Eos % (Auto) 3.8 (2-4) % Baso % (Auto) 0.5 (0-2) % Neut # (Auto) 3800 (1190-7261) /uL Lymph # (Auto) 700 L (7616-6066) /uL Waldo # (Auto) 300 (0-900) /uL Eos # (Auto) 200 (0-450) /uL Baso # (Auto) 0 (0-100) /uL Sodium 136 L (137-145) mmol/L Potassium 3.2 L (3.4-5.1) mmol/L Chloride 104 (98-107) mmol/L Carbon Dioxide 26 (22-32) mmol/L BUN 10 (7-17) mg/dL Creatinine 0.81 (0.52-1.04) mg/dL Estimated GFR > 60.0 (>60) mL/min BUN/Creatinine Ratio 12.3 (6-22) Glucose 113 H (70-100) mg/dL Lactate < 0.5 L (0.7-2.1) mmol/L Calcium 8.4 (8.4-10.2) mg/dL Total Bilirubin 0.6 (0.2-1.3) mg/dL AST 80 H (14-36) IU/L ALT 45 H (<35) IU/L Alkaline Phosphatase 63 (38-126) U/L Total Protein 7.0 (6.3-8.2) g/dL Albumin 4.2 (3.5-5.0) g/dL Globulin 2.8 (1.7-4.1) g/dL Albumin/Globulin Ratio 1.5 (1.0-2.8) Lipase 35 (23-300) U/L Serum , Qual (Negative) 09/15/21 Range/Units 08:12 WBC (4.5-11.0) X10^3/uL RBC (4.0-5.2) X10^6/uL Hgb (12.0-16.0) g/dL Hct (36-46) % MCV (80-100) fL MCH (26-34) PG MCHC (30-36) % RDW (11.6-14.8) % Plt Count (150-400) X10^3/uL Neut % (Auto) (50-75) % Lymph % (Auto) (25-40) % Waldo % (Auto) (3-14) % Eos % (Auto) (2-4) % Baso % (Auto) (0-2) % Neut # (Auto) (7364-2941) /uL Lymph # (Auto) (8578-2189) /uL Waldo # (Auto) (0-900) /uL Eos # (Auto) (0-450) /uL Baso # (Auto) (0-100) /uL Sodium (137-145) mmol/L Potassium (3.4-5.1) mmol/L Chloride (98-107) mmol/L Carbon Dioxide (22-32) mmol/L BUN (7-17) mg/dL Creatinine (0.52-1.04) mg/dL Estimated GFR (>60) mL/min BUN/Creatinine Ratio (6-22) Glucose (70-100) mg/dL Lactate (0.7-2.1) mmol/L Calcium (8.4-10.2) mg/dL Total Bilirubin (0.2-1.3) mg/dL AST (14-36) IU/L ALT (<35) IU/L Alkaline Phosphatase (38-126) U/L Total Protein (6.3-8.2) g/dL Albumin (3.5-5.0) g/dL Globulin (1.7-4.1) g/dL Albumin/Globulin Ratio (1.0-2.8) Lipase (23-300) U/L Serum , Qual Negative (Negative) Imaging Data CT scan - abdomen/pelvis: Radiologist's Impression: [address] [address] [address] Scan Report Signed Patient: Shasta Weinstein MR#: [id number] : 1985 Acct:[id number] Age/Sex: 36 / F Date of Service: 09/15/21 Loc: ED Accession Number: [id number] ?? Procedure: CT abdomen pelvis w con Ordering Provider: Jorge Comer D.O. PROCEDURE:? CT ABDOMEN PELVIS W CON ? INDICATIONS:? Right-sided abdominal pain ? TECHNIQUE:? After the administration of intravenous contrast, axial sections acquired from t he lung bases to the pubic symphysis.? Coronal and sagittal reformats were performed.? For radiation dose reduction, the following was used:? automated exposure control, adjustment of mA and/or kV according to patient size.? ? COMPARISON:? None. ? FINDINGS:? Image quality:? Excellent.? ? Lung bases:? Unremarkable. Heart:? No significant findings. ? ABDOMEN: Liver:? No mass or other acute finding. Gallbladder:? Cholecystectomy. Biliary ducts:? Mild post cholecystectomy reservoir phenomenon manifesting as this slight dilatation intrahepatic and extrahepatic biliary ducts. Pancreas:? No peripancreatic inflammatory changes or ductal dilatation. Spleen:? Normal size and appearance. Adrenal Glands:? No nodule or mass. Kidneys and Ureters:? Unremarkable.? ? ? Stomach and Bowel:? No abnormally dilated or thickened loop of bowel.? No pericolonic or mesenteric inflammatory changes. Peritoneum:? No abnormal intraperitoneal fluid.? No free air.? ? Ventral Wall: ? No hernias.? Abdominal Nodes:? No retroperitoneal or mesenteric adenopathy by size criteria.? Vessels:? Aorta and inferior vena cava are normal in size.? ? PELVIS: Pelvic Organs:? Bladder is unremarkable.? Uterus and ovaries are normal.? Moderate volume free pelvic fluid is within physiologic normal limits. Pelvic Nodes:? No threshold enlarged pelvic or inguinal lymph node. Miscellaneous: No hernias are seen. ? ? ? Bones:? Unremarkable. ? ? ? IMPRESSION:? No acute finding. ? ? ? Dictated by: Grant Castle M.D. on 09/15/2021 at 8:49 ? ? Approved by: Grant Castle M.D. on 09/15/2021 at 8:53? MDM Narrative Medical decision making narrative: The evaluation of her abdominal discomfort is benign however does not show a specific etiology of her discomfort. She does have swelling of her lower lip and upper lip which seems to be worsening over the past 12-24 hours. She has had a history of angioedema in the past. Potentially her abdominal pain is angioedema related as well. Patient has no respiratory distress. Is tolerating oral secretions. Despite this given the fact that she does seem to have worsening swelling of her lips patient does require admission the hospital for observation to observe for worsening. Discussed the case with Dr. Sow with internal medicine who will admit for further evaluation treatment. Discharge Plan Departure Patient Disposition: Admitted as Observation Clinical Impression: Angioedema, Abdominal pain Admit Date/Time: 09/15/21 09:23 Admit Provider: Nir Sow
[2021-09-15 08:23] LABS: Add Manual Diff / Slide Review NO; Basophils Absolute Auto 0 /uL (0-100); Basophils Percent Auto 0.5 % (0-2); Eosinophils Absolute Auto 200 /uL (0-450); Eosinophils Percent Auto 3.8 % (2-4); Hematocrit 37.8 % (36-46); Hemoglobin 12.8 g/dL (12.0-16.0); Lymphocytes Absolute Auto 700 /uL (1100-4500); Lymphocytes Percent Auto 13.6 % (25-40); Mean Corpuscular HGB Conc 33.9 % (30-36); Mean Corpuscular Hemoglobin 30.5 PG (26-34); Mean Corpuscular Volume 89.9 fL (80-100); Monocytes Absolute Auto 300 /uL (0-900); Monocytes Percent Auto 6.2 % (3-14); Neutrophils Absolute Auto 3800 /uL (1500-7000); Neutrophils Percent Auto 75.9 % (50-75); Platelet Count 235 X10^3/uL (150-400); Red Blood Cell Count 4.21 X10^6/uL (4.0-5.2)
[2021-09-15] MEDS: diphenhydrAMINE 50 MG/ML VIAL 25 MG IV (08:23)
[2021-09-15] MEDS: methylPREDNISolone 125 MG/2 ML VIAL IV (08:23)
[2021-09-15] MEDS: SODIUM CHLORIDE 0.9% 1,000 ML 125 ML IV (08:23)
[2021-09-15 08:32] LABS: Alanine Aminotransferase 45 IU/L (<35); Albumin 4.2 g/dL (3.5-5.0); Albumin Globulin Ratio 1.5 (1.0-2.8); Alkaline Phosphatase 63 U/L (38-126); Aspartate Aminotransferase 80 IU/L (14-36); BUN Creatinine Ratio 12.3 (6-22); Bilirubin Total 0.6 mg/dL (0.2-1.3); Blood Urea Nitrogen 10 mg/dL (7-17); Calcium 8.4 mg/dL (8.4-10.2); Carbon Dioxide 26 mmol/L (22-32); Chloride 104 mmol/L (98-107); Estimated Glomerular Filt Rate > 60.0 mL/min (>60); Globulin 2.8 g/dL (1.7-4.1); Glucose 113 mg/dL (70-100); HEMOLYSIS < 15 (0-50); Lipase 35 U/L (23-300); Potassium 3.2 mmol/L (3.4-5.1); Sodium 136 mmol/L (137-145)
[2021-09-15 08:33] LABS: Lactate (Lactic Acid) < 0.5 mmol/L (0.7-2.1)
[2021-09-15 08:34] LABS: Pregnancy Test Serum,Qual Negative (Negative)
--- NOTE | 2021-09-15 08:44 | DI.CT.S_ITS ---
PROCEDURE: CT ABDOMEN PELVIS W CON INDICATIONS: Right-sided abdominal pain TECHNIQUE: After the administration of intravenous contrast, axial sections acquired from the lung bases to the pubic symphysis. Coronal and sagittal reformats were performed. For radiation dose reduction, the following was used: automated exposure control, adjustment of mA and/or kV according to patient size. COMPARISON: None. FINDINGS: Image quality: Excellent. Lung bases: Unremarkable. Heart: No significant findings. ABDOMEN: Liver: No mass or other acute finding. Gallbladder: Cholecystectomy. Biliary ducts: Mild post cholecystectomy reservoir phenomenon manifesting as this slight dilatation intrahepatic and extrahepatic biliary ducts. Pancreas: No peripancreatic inflammatory changes or ductal dilatation. Spleen: Normal size and appearance. Adrenal Glands: No nodule or mass. Kidneys and Ureters: Unremarkable. Stomach and Bowel: No abnormally dilated or thickened loop of bowel. No pericolonic or mesenteric inflammatory changes. Peritoneum: No abnormal intraperitoneal fluid. No free air. Ventral Wall: No hernias. Abdominal Nodes: No retroperitoneal or mesenteric adenopathy by size criteria. Vessels: Aorta and inferior vena cava are normal in size. PELVIS: Pelvic Organs: Bladder is unremarkable. Uterus and ovaries are normal. Moderate volume free pelvic fluid is within physiologic normal limits. Pelvic Nodes: No threshold enlarged pelvic or inguinal lymph node. Miscellaneous: No hernias are seen. Bones: Unremarkable. IMPRESSION: No acute finding. Dictated by: Grant Castle M.D. on 09/15/2021 at 8:49 Approved by: Grant Castle M.D. on 09/15/2021 at 8:53
[2021-09-15 10:41] LABS: COVID19 -Nasal RAPID Negative (Negative)
--- NOTE | 2021-09-15 12:53 | PM.HP.1 ---
History of Present Illness History of Present Illness Chief complaint: sent from [facility], right side abd pain, Face/Lip swell Narrative: 36yo female with a hx of angioedema in the past due to hydrochlorothiazide (HCTZ) and Aldactone that presents with bilateral lip swelling. The patient reports that this started last night. It was associated with RUQ pain that has since resolved. The patient endorses undergoing cholecystectomy in February 2021. The patient denies taking any new medications. However, she endorses taking OTC supplements as given to her by a atlassian administrator some months ago, as a gallbladder supplement after her cholecystectomy. The patient denies any dose changes on these supplements. She denies any new food intake. The patient states that the lip swelling is better now, although still there. She endorses tongue swelling in the past with angioedema, which she does not endorse now. She denies any current issues with SOB, wheezing, cough, CP, eye swelling, abd pain, n/v/d, fever/chills. She denies any hx of intubation. She reports being tested for hereditary angioedema in the past with results being negative. Other than cholecystectomy, the patient denies PSH. She endorses occasionally having ocular migraines which abort with triptans. She denies any relevant family hx. She denies smoking tobacco, drinking EtOH excessively, or illicit drug use. Patient History Medical History Angioedema Ocular migraine PCOS (polycystic ovarian syndrome) Surgical History Hx of cholecystectomy Family & Social History Safety & Behavioral: Feels Safe in Current Yes Environment Been Physically Hurt or No Threatened By a Person Tobacco & Substance use: Smoking Status Never smoker alcohol intake frequency a few times a week Substance Use Type does not use Meds Home Medications and Allergies Home Medications Medication Instructions Recorded Confirmed Type cyclobenzaprine 5 mg tablet #0 02/13/17 01/24/21 History epinephrine 0.3 mg/0.3 mL 0.3 mg (0.3 mL) INJ X1 #1 pkg 02/13/17 01/24/21 Rx injection, auto-injector (EpiPen 2-Fabio) ondansetron 4 mg disintegrating 4 mg SUBLINGUAL Q6HP PRN #20 odt 02/13/17 01/24/21 Rx tablet (Zofran ODT) ibuprofen 600 mg tablet 600 mg PO TID-QID PRN #20 tab 11/13/17 01/24/21 Rx fluticasone propionate 50 1 spray NASAL BID #15.8 ml 05/04/19 01/24/21 Rx mcg/actuation nasal spray,suspension (Flonase Allergy Relief) cyclobenzaprine 10 mg tablet 10 mg PO TID PRN #15 tab 10/27/19 01/24/21 Rx ibuprofen 600 mg tablet 600 mg PO QID PRN #20 tab 10/27/19 01/24/21 Rx ketorolac 10 mg tablet 10 mg PO Q6H PRN #20 tab 04/14/20 01/24/21 Rx hydrocortisone 2.5 % topical cream 1 applic TOPICAL BID PRN #90 g 06/16/20 01/24/21 Rx hydroxyzine HCl 25 mg tablet 25 mg PO BEDTIME PRN #7 tab 06/16/20 01/24/21 Rx Allergies Allergy/AdvReac Type Severity Reaction Status Date / Time hydrochlorothiazide Allergy Severe angioedema Verified 09/15/21 07:58 spironolactone Allergy Unknown Verified 09/15/21 07:58 Review of Systems Constitutional Comments: Denies fever/chills, night sweats, weight loss. Eyes Comments: Denies vision changes, eye swelling. ENT Comments: Endorses bilateral lip swelling, denies stridor. Cardiovascular Comments: Denies CP, peripheral edema Respiratory Comments: Denies SOB, cough, wheezing. Gastrointestinal Comments: Denies abd pain, n/v/d. Integumentary/Breasts Comments: Denies any new skin rashes. Exam Vital Signs (past 8 hours): - 09/15/21 07:55 09/15/21 07:56 09/15/21 07:58 Temperature 98.0 F Pulse Rate 123 H 124 H 115 H Respiratory Rate 20 Blood Pressure 136/88 136/88 Pulse Oximetry 100 100 100 09/15/21 08:00 09/15/21 08:29 09/15/21 08:30 Temperature Pulse Rate 108 H 96 H 96 H Respiratory Rate Blood Pressure 137/61 131/76 116/64 Pulse Oximetry 100 100 100 09/15/21 09:00 09/15/21 09:30 09/15/21 10:00 Temperature Pulse Rate 98 H 90 88 Respiratory Rate Blood Pressure 122/59 L 116/66 101/58 L Pulse Oximetry 100 100 100 09/15/21 10:30 09/15/21 11:00 09/15/21 11:15 Temperature 98.2 F Pulse Rate 87 82 84 Respiratory Rate 16 Blood Pressure 111/63 116/61 122/64 Pulse Oximetry 100 100 100 09/15/21 12:33 Temperature Pulse Rate Respiratory Rate Blood Pressure Pulse Oximetry 99 Oxygen Delivery Method Room Air Oxygen Flow Rate 0 Narrative Exam Narrative: Patient sitting up in bed comfortably upon my entering the room, eating a sandwich and in no apparent acute distress Const Other: Patient sitting up in bed comfortably upon my entering the room, eating a sandwich and in no apparent acute distress. HENMT Other: Upper and lower angioedema appreciated, worse on the lower lip. No tongue swelling appreciated. Eyes Other: No scleral icterus appreciated. Resp Other: Lungs clear to auscultation bilaterally. Cardio Other: RRR, S1 and S2 heart sounds normal, with no extra heart sounds or murmurs appreciated. GI Other: Soft, non-distended, non-tender. Bowel sounds present. Skin Other: No skin lesions appreciated grossly. Extrem Other: Palpable and equally steady dorsalis pedis pulses. Objective Labs Result Diagrams: 09/15/21 08:12 09/15/21 08:12 Labs: Laboratory Results - last 24 hr 09/15/21 09/15/21 09/15/21 08:12 08:12 08:12 WBC 5.0 RBC 4.21 Hgb 12.8 Hct 37.8 MCV 89.9 MCH 30.5 MCHC 33.9 RDW 13.0 Plt Count 235 Neut % (Auto) 75.9 H Lymph % (Auto) 13.6 L [place] % (Auto) 6.2 Eos % (Auto) 3.8 Baso % (Auto) 0.5 Neut # (Auto) 3800 Lymph # (Auto) 700 L [place] # (Auto) 300 Eos # (Auto) 200 Baso # (Auto) 0 Sodium 136 L Potassium 3.2 L Chloride 104 Carbon Dioxide 26 BUN 10 Creatinine 0.81 Estimated GFR > 60.0 BUN/Creatinine Ratio 12.3 Glucose 113 H Lactate < 0.5 L Calcium 8.4 Total Bilirubin 0.6 AST 80 H ALT 45 H Alkaline Phosphatase 63 Total Protein 7.0 Albumin 4.2 Globulin 2.8 Albumin/Globulin Ratio 1.5 Lipase 35 Serum , Qual SARS-CoV-2 (PCR) 09/15/21 09/15/21 08:12 09:49 WBC RBC Hgb Hct MCV MCH MCHC RDW Plt Count Neut % (Auto) Lymph % (Auto) [place] % (Auto) Eos % (Auto) Baso % (Auto) Neut # (Auto) Lymph # (Auto) [place] # (Auto) Eos # (Auto) Baso # (Auto) Sodium Potassium Chloride Carbon Dioxide BUN Creatinine Estimated GFR BUN/Creatinine Ratio Glucose Lactate Calcium Total Bilirubin AST ALT Alkaline Phosphatase Total Protein Albumin Globulin Albumin/Globulin Ratio Lipase Serum , Qual Negative SARS-CoV-2 (PCR) Negative Assessment & Plan Assessment & Plan narrative: Assessment: 1. Angioedema, improving 2. Hx of PCOS 3. Hx of cholecystectomy 4. Hx of ocular migraines Plan: 1. Will continue to monitor airway for at least 24 hrs, along with IV Solumedrol 125 mg daily. The patient and I extensively discussed the need to discontinue any OTC supplements for now, as an ingredient in there is likely causing this, even if the patient has been on said supplements for a while. 2. Was on HCTZ and Aldactone in the past, which caused angioedema. 3. She underwent this surgery in February 2021 without severe post-op complications. 4. Patient denies this is an active issue for now, and usually aborts with triptan therapy at home. VTE prophylaxis: None Code: Full I have utilized all available immediate resources to obtain, update, or review the patient's current medications. Time Spent With Patient Critical Care time: I spent a total of [] minutes of critical care time on this patient's care today; this time is exclusive of procedural time. Quality MIPS - Admit I confirm the patient?s Advance Care Plan is present, Code status is documented, Surrogate decision maker is in patient?s record [If Yes, STOP here]: Yes
[2021-09-15] MEDS: TRAMADOL 50 MG TABLET PO (21:51)
--- NOTE | 2021-09-16 00:56 | PC.NURSE ---
Pt is complaining of migraine headache which she states causes her to have nausea, vomiting and diarrhea. She is refusing the ativan ordered to help her relax. She asked to be left undisturbed. MD notified about pts request.
[2021-09-16 04:00] VITALS: BP 92/50; PULSE 71; RESP 18; TEMP 36.4; O2SAT 100
--- NOTE | 2021-09-16 04:24 | PC.NURSE ---
0400 - Pt allowed vitals to be taken and states that during the night she's vomited 4 times and had 3 loose bms. She did not make staff aware that she was having vomiting and diarrhea. she also states that she only urinated a small amount through the night. She has refused interventions or medications.
[2021-09-16] MEDS: methylPREDNISolone 125 MG/2 ML VIAL IV (08:48)
[2021-09-16 08:55] VITALS: O2SAT 97
--- NOTE | 2021-09-16 11:22 | P.PN_ITS ---
Subjective Subjective Interval history: The patient denies any issues with respiratory distress overnight. She reports that her lip swelling is significantly better. She is tolerating PO intake well. She is requesting to go home today, as she feels back to baseline. Exam Vital Signs (past 8 hours): - 09/16/21 04:00 09/16/21 08:55 Temperature 97.5 F L Pulse Rate 71 Respiratory Rate 18 Blood Pressure 92/50 L Pulse Oximetry 100 97 Oxygen Delivery Method Room Air Oxygen Flow Rate 0 Narrative Exam Narrative: Const Other: Patient sitting up in bed comfortably upon my entering the room, eating a sandwich and in no apparent acute distress. HENMT Other: Upper and lower angioedema appreciated, improved from prior. No tongue swelling appreciated. Eyes Other: No scleral icterus appreciated. Resp Other: Lungs clear to auscultation bilaterally. Cardio Other: RRR, S1 and S2 heart sounds normal, with no extra heart sounds or murmurs appreciated. GI Other: Soft, non-distended, non-tender. Bowel sounds present. Skin Other: No skin lesions appreciated grossly. Extrem Other: Palpable and equally steady dorsalis pedis pulses. Objective Labs Result Diagrams: 09/15/21 08:12 09/15/21 08:12 [facility] Medical History Angioedema Ocular migraine PCOS (polycystic ovarian syndrome) Surgical History Hx of cholecystectomy Social History household members: none Smoking Status: Never smoker Assessment & Plan Assessment & Plan narrative: Assessment: 1. Angioedema, improving 2. Hx of PCOS 3. Hx of cholecystectomy 4. Hx of ocular migraines Plan: 1. The patient and I extensively discussed the need to discontinue any OTC suppl ements for now, as an ingredient in there is likely causing this, even if the patient has been on said supplements for a while. 2. Was on HCTZ and Aldactone in the past, which caused angioedema. 3. She underwent this surgery in February 2021 without severe post-op complications. 4. Patient denies this is an active issue for now, and usually aborts with triptan therapy at home. VTE prophylaxis: None Time Spent With Patient Critical Care time: I spent a total of [] minutes of critical care time on this patient's care to day; this time is exclusive of procedural time.
--- NOTE | 2021-09-16 11:26 | P.DS_ITS ---
History of Present Illness History of Present Illness Chief complaint: sent from [facility], right side abd pain, Face/Lip swell Narrative: 36yo female with a hx of angioedema in the past due to hydrochlorothiazide (HCTZ ) and Aldactone that presents with bilateral lip swelling. The patient reports that this started last night. It was associated with RUQ pain that has since resolved. The patient endorses undergoing cholecystectomy in February 2021. The patient denies taking any new medications. However, she endorses taking OTC supplements as given to her by a computational chemist some months ago, as a gallbladder supplement after her cholecystectomy. The patient denies any dose changes on these supplements. She denies any new food intake. The patient states that the lip swelling is better now, although still there. S he endorses tongue swelling in the past with angioedema, which she does not endorse now. She denies any current issues with SOB, wheezing, cough, CP, eye swelling, abd pain, n/v/d, fever/chills. She denies any hx of intubation. She reports being tested for hereditary angioedema in the past with results being negative. Other than cholecystectomy, the patient denies PSH. She endorses occasionally h aving ocular migraines which abort with triptans. She denies any relevant family hx. She denies smoking tobacco, drinking EtOH excessively, or illicit drug use. Discharge Providers Provider Date of admission: 09/15/21 09:23 Discharge Date: 09/16/21 Primary care physician: GAIL Fuentes Discharge provider: Nir Sow MD Summary Hospital Course Discharge Diagnosis: Assessment: 1. Angioedema, improving 2. Hx of PCOS 3. Hx of cholecystectomy 4. Hx of ocular migraines Plan: 1. The patient and I extensively discussed the need to discontinue any OTC supplements for now, as an ingredient in there is likely causing this, even if the patient has been on said supplements for a while. 2. Was on HCTZ and Aldactone in the past, which caused angioedema. 3. She underwent this surgery in February 2021 without severe post-op complications. 4. Patient denies this is an active issue for now, and usually aborts with triptan therapy at home. Exam Vital Signs (past 8 hours): - 09/16/21 04:00 09/16/21 08:55 Temperature 97.5 F L Pulse Rate 71 Respiratory Rate 18 Blood Pressure 92/50 L Pulse Oximetry 100 97 Oxygen Delivery Method Room Air Oxygen Flow Rate 0 Objective Labs Result Diagrams: 09/15/21 08:12 09/15/21 08:12 [facility] Medical History Angioedema Ocular migraine PCOS (polycystic ovarian syndrome) Surgical History Hx of cholecystectomy Social History household members: none Smoking Status: Never smoker Discharge Assessment & Plan Assessment and Plan Assessment: Assessment: 1. Angioedema, improving 2. Hx of PCOS 3. Hx of cholecystectomy 4. Hx of ocular migraines Plan: 1. The patient and I extensively discussed the need to discontinue any OTC supplements for now, as an ingredient in there is likely causing this, even if the patient has been on said supplements for a while. 2. Was on HCTZ and Aldactone in the past, which caused angioedema. 3. She underwent this surgery in February 2021 without severe post-op complica tions. 4. Patient denies this is an active issue for now, and usually aborts with triptan therapy at home. Discharge Plan Discharge Plan Patient Disposition: Home Discharge orders & Medications Prescriptions: New prednisone 20 mg tablet 40 mg PO DAILY 7 Days Qty: 14 0RF Continued hydrocortisone 2.5 % cream 1 applic topical BID PRN (Reason: itching) Qty: 90 0RF cyclobenzaprine 10 mg tablet 10 mg PO TID PRN (Reason: muscle spasm) Qty: 15 0RF albuterol sulfate 90 mcg/actuation HFA aerosol inhaler 1 puff INHALATION PRN PRN (Reason: Cough) 0RF Label Comments: INHALE 2 PUFFS INTO THE LUNGS EVERY 4 HOURS NEEDED FOR WHEEZING naratriptan 2.5 mg tablet 12.5 mg PO PRN PRN (Reason: Migraine Headache) 0RF clindamycin phosphate 1 % solution 1 applic TOPICAL DAILY 0RF Label Comments: APPLY TOPICALLY TO THE AFFECTED AREA TWICE DAILY ibuprofen 600 mg tablet 600 mg PO TID-QID PRN (Reason: pain) Qty: 20 0RF Follow up/Referrals: Urrutia,Shujun, OPERATIONS LEADER-C [Primary Care Provider] - Discharge Data Primary Care Provider: Calvin Urrutia Attending Provider: Nir Sow
--- NOTE | 2021-09-16 11:43 | PC.NURSE ---
Patient discharged home. IV removed, no tele. New Rx for prednisone in hand. Patient instructed to follow up with PCP. No concerns or further questions about discharge.
== END 2021-09-16 11:43 | disposition home or self-care (01) ==
LOC: ED 09:23 → AC 09:25 → ICU 09:43
PROVIDERS: Admitting Provider Student in an Organized Health Care Education/Training Program; Emergency Provider Emergency Medicine; PCP Nurse Practitioner; Referring Provider Emergency Medicine; Visit Provider Student in an Organized Health Care Education/Training Program
DX: T78.3XXA Angioneurotic edema, initial encounter (principal); R10.9 Unspecified abdominal pain; Z20.822 Contact with and (suspected) exposure to COVID-19
CPT/HCPCS: 74177; 80053; 83605; 83690; 84703; 85025; 87635; 94760; 94762; 96374; 96375; 96376; 99284; C9803; G0378; J1200; J2930

== ENCOUNTER 2023-03-14 04:05 | Emergency (ER) | payer OTHER, SELFPAY ==
[2021-09-15 13:45] VITALS: BMI 25.8
[2023-03-14 04:17] VITALS: BP 151/83; PULSE 103; RESP 24; TEMP 36.6; O2SAT 100; BMI 27.4
[2023-03-14 04:25] VITALS: PULSE 92; O2SAT 100
[2023-03-14 04:30] VITALS: BP 146/80; PULSE 106; O2SAT 100
--- NOTE | 2023-03-14 04:40 | DI.CT.S_ITS ---
PROCEDURE: CT ABDOMEN PELVIS W CON INDICATIONS: RUQ abd pain, tremors; hx:cholecystectomy TECHNIQUE: After the administration of intravenous contrast, axial sections acquired from the lung bases to the pubic symphysis. Coronal and sagittal reformats were performed. For radiation dose reduction, the following was used: automated exposure control, adjustment of mA and/or kV according to patient size. COMPARISON: [facility], CT, CT ABDOMEN PELVIS W CON, 09/15/2021, 8:19. FINDINGS: Image quality: Excellent. Lung bases: Unremarkable. Heart: No significant findings. ABDOMEN: Liver: Unremarkable. Gallbladder: Surgically absent. Biliary ducts: Unremarkable. Pancreas: Unremarkable. Spleen: Unremarkable. Adrenal Glands: Unremarkable. Kidneys and Ureters: Unremarkable. Stomach and Bowel: Stomach, small bowel loops, and colon are unremarkable. Normal appendix. Peritoneum: No abnormal intraperitoneal fluid. No free air. Ventral Wall: No hernias. Abdominal Nodes: No retroperitoneal or mesenteric adenopathy by size criteria. Vessels: Aorta and inferior vena cava are normal in size. PELVIS: Pelvic Organs: Unremarkable. Bladder: Unremarkable. Pelvic Nodes: No enlarged lymph nodes. Miscellaneous: No hernias are seen. Bones: Unremarkable. IMPRESSION: No cause for patient's symptoms is identified. No acute findings within the abdomen or pelvis. Status post cholecystectomy. Findings are concordant with preliminary interpretation provided by [facility]. Dictated by: Andre Knutson M.D. on 03/14/2023 at 8:06 Approved by: Andre Knutson M.D. on 03/14/2023 at 8:09
--- NOTE | 2023-03-14 04:40 | ED.ABDPAIN ---
HPI - Abdominal Pain General Chief Complaint: Abdominal Pain Stated Complaint: severe abd right pain in upper area/tremors/ Time Seen by Provider: 03/14/23 04:12 Source: patient Mode of arrival: Ambulatory History of Present Illness HPI narrative: 37-year-old female with history of PCOS, endometriosis, ocular migraine, history of cholecystectomy 2 years prior who presents with right upper quadrant pain. Patient states pain started about 6 weeks ago, she is had an on and off in the past as well but has been slowly progressing over the past 6 weeks and got much worse last night into today. She states it has been persistent, very localized to the right upper quadrant radiates a little bit around to the back. Denies fevers or chills. No chest pain or shortness of breath. She is had nausea but no vomiting. She states when the pain is quite intense she will have frequent bowel movements but describes them as regular, not loose, watery, no black or bloody stools or constipation. She denies dysuria, urgency or frequency. She states she just started her menses yesterday, she states that it can sometimes be quite heavy but has not been that 10th. No new discharge. Patient notes she feels like she is had some swelling under her eyes on both sides in the yesterday her face and arm felt numb. She states and she developed tremors yesterday into today. She states she gets tremors intermittently, she usually takes either Benadryl or cyclobenzaprine and B vitamin which she finds helpful. Patient states prior surgeries include her cholecystectomy which was 2 years ago, prior knee surgery. She states she is allergic to HCTZ and spironolactone and developed angioedema with both these after being on the intermediate manager. No daily tobacco, drinks alcoholic drinks couple times a week occasionally, no THC or illicit. Patient follows with a [facility] as well as primary care Calvin Urrutia. She has set up follow-up with the Dr. Brandon, general surgery in [facility] [place]. Related Data Home Medications Medication Instructions Recorded Confirmed albuterol sulfate 90 mcg/actuation 1 puff inhalation PRN PRN Cough 09/15/21 11/25/22 aerosol inhaler clindamycin phosphate 1 % topical 1 applic topical DAILY 09/15/21 11/25/22 solution naratriptan 2.5 mg tablet 12.5 mg PO PRN PRN Migraine 09/15/21 11/25/22 Headache Previous Rx's Medication Instructions Recorded ibuprofen 600 mg tablet 600 mg PO TID-QID PRN pain #20 tabs 11/13/17 cyclobenzaprine 10 mg tablet 10 mg PO TID PRN muscle spasm #15 10/27/19 tabs hydrocortisone 2.5 % topical cream 1 applic topical BID PRN itching 06/16/20 #90 grams prednisone 20 mg tablet 40 mg PO DAILY #6 tabs 11/25/22 Allergies Allergy/AdvReac Type Severity Reaction Status Date / Time hydrochlorothiazide Allergy Severe angioedema Verified 11/25/22 12:27 spironolactone Allergy Unknown Verified 11/25/22 12:27 Review of Systems Review of Systems ROS Unobtainable: All systems reviewed & are unremarkable except as noted in HPI and below Patient History Medical History Angioedema Ocular migraine PCOS (polycystic ovarian syndrome) Surgical History Hx of cholecystectomy Social History household members: none Smoking Status: Never smoker Smoking Status: Never smoker alcohol intake frequency: a few times a month Alcohol type: hard liquor Substance Use Type: does not use Exam Narrative Exam Narrative: GEN: well nourished, well appearing female, alert and oriented x 3, patient appears to be in mild distress. HEENT: Atraumatic, pupils are equal round reactive to light, extraocular movements are intact, nares are clear, TMs are clear with no fluid, there is no conjunctival pallor. Throat is clear without any exudates, erythema, tonsillar enlargement or uvular deviation, facial swelling. No droop. HEART: Regular rate and rhythm without murmur, clicks, rubs. LUNGS:Lungs clear to auscultation, no wheezes, rales, crackles, chest moves symmetrically ABD:bowel sounds normal, soft, [id number] right upper quadrant tenderness, patient has small healed incisions consistent with prior laparoscopic surgery that appear fully healed, no guarding, rebound, rigidity, no masses noted, no hepatosplenomegaly :No CVA tenderness MSCL: Non-tender, no muscle atrophy, muscles strength 5/5 upper and lower extremities, full range of motion, normal gait NEURO:CN 2-12 intact, sensation normal Initial Vital Signs Initial Vital Signs: Vital Signs Temperature 97.9 F 03/14/23 04:17 Pulse Rate 103 H 03/14/23 04:17 Respiratory Rate 24 03/14/23 04:17 Blood Pressure 151/83 H 03/14/23 04:17 Pulse Oximetry 100 03/14/23 04:17 Oxygen Delivery Method Room Air 03/14/23 04:17 Course Orders Ordered: ED Orders 03/14/23 04:39 Complete Blood Count AUTO DIFF Stat Comprehensive Metabolic Panel Stat Lipase Stat 03/14/23 04:40 CT abdomen pelvis w con Stat Discontinued Medications Sodium Chloride (Normal Saline 0.9%) 1,000 mls @ 1,000 mls/hr IV BOLUS ONE Stop: 03/14/23 05:38 Last Infusion: 03/14/23 06:02 Dose: Infused Vital Signs Vital signs: Vital Signs - 8 hr 03/14/23 04:17 03/14/23 04:25 03/14/23 04:30 Temperature 97.9 F Pulse Rate 103 H 92 H Respiratory Rate 24 Blood Pressure 151/83 H 146/80 H Pulse Oximetry 100 100 Oxygen Delivery Method Room Air 03/14/23 04:30 03/14/23 05:08 03/14/23 05:09 Temperature Pulse Rate 106 H 87 Respiratory Rate Blood Pressure 139/70 Pulse Oximetry 100 100 Oxygen Delivery Method 03/14/23 05:09 03/14/23 05:30 03/14/23 05:30 Temperature Pulse Rate 87 94 H Respiratory Rate 16 Blood Pressure 128/62 Pulse Oximetry 100 100 Oxygen Delivery Method MDM - Abdominal Pain Lab Data 03/14/23 04:51 03/14/23 04:51 Labs: Lab Results 03/14/23 03/14/23 Range/Units 04:51 04:51 WBC 5.6 (4.5-11.0) X10^3/uL RBC 4.05 (4.0-5.2) X10^6/uL Hgb 12.2 (12.0-16.0) g/dL Hct 36.3 (36-46) % MCV 89.5 (80-100) fL MCH 30.1 (26-34) PG MCHC 33.6 (30-36) % RDW 13.0 (11.6-14.8) % Plt Count 274 (150-400) X10^3/uL Neut % (Auto) 62.7 (50-75) % Lymph % (Auto) 25.6 (25-40) % Gosper % (Auto) 7.8 (3-14) % Eos % (Auto) 2.8 (2-4) % Baso % (Auto) 1.1 (0-2) % Neut # (Auto) 3500 (5208-5940) /uL Lymph # (Auto) 1400 (2008-8444) /uL Gosper # (Auto) 400 (0-900) /uL Eos # (Auto) 200 (0-450) /uL Baso # (Auto) 100 (0-100) /uL Sodium 136 L (137-145) mmol/L Potassium 3.5 (3.4-5.1) mmol/L Chloride 105 (98-107) mmol/L Carbon Dioxide 23 (22-32) mmol/L BUN 10 (7-17) mg/dL Creatinine 0.79 (0.52-1.04) mg/dL Estimated GFR > 60 (>60) mL/min BUN/Creatinine Ratio 12.7 (6-22) Glucose 117 H (70-100) mg/dL Calcium 8.6 (8.4-10.2) mg/dL Total Bilirubin 0.5 (0.2-1.3) mg/dL AST 23 (14-36) IU/L ALT 19 (<35) IU/L Alkaline Phosphatase 39 (38-126) U/L Total Protein 7.2 (6.3-8.2) g/dL Albumin 4.0 (3.5-5.0) g/dL Globulin 3.2 (1.7-4.1) g/dL Albumin/Globulin Ratio 1.3 (1.0-2.8) Lipase 47 (23-300) U/L Point of care testing: Point of Care Testing Test Results Negative Urine Dip Bedside Urine Glucose Negative Bedside Urine Bilirubin - Negative Bedside Urine Ketone - Negative Urine Specific [place] 1.025 Bedside Urine Occult Blood - Negative Bedside Urine pH 6.0 Bedside Urine Protein - Negative Bedside Urine Urobilinogen - Negative Bedside Urine Nitrite - Negative Bedside Urine Leukocytes - Negative Esterase Imaging Data CT scan - abdomen/pelvis: Radiologist's Impression: Lung bases are clear. Liver is unremarkable. Status post cholecystectomy. Pancreas, spleen and adrenal glands are unremarkable, kidneys are unremarkable. Appendix is normal. Uterus and urinary bladder unremarkable. There is no evidence of bowel obstruction. There is no convincing acute bowel inflammation. No retroperitoneal mass or lymphadenopathy. Aorta normal in caliber. No acute or aggressive osseous lesions. Impression: Unremarkable CT of the abdomen pelvis with status post cholecystectomy. MDM Narrative Medical decision making narrative: This is a 37-year-old female with 6 weeks of right upper quadrant pain with sometimes similar symptoms in the past 2 years status post cholecystectomy, patient has some mild tenderness. She describes some tremors that come and go but are not correlated with her pain and have been longstanding. She describes some numbness and tingling of her arm and face that occurred yesterday. She also describes some swelling under her eyes. Same orientation overall is normal except for tenderness in the right upper quadrant. Patient's workup including labs is overall unremarkable, point of care is negative with negative urine. Patient has had prior abdominal imaging and with constellation of symptoms CT abdomen pelvis was obtained it does not show any acute changes. Patient has already been setting up follow-up with General surgery for recheck. Patient does note that she has history of endometriosis as well as PCOS and although right upper quadrant pain is less likely is not possible to be related to endometriosis particularly she just started her menstrual cycle. Patient has had prior admission for abdominal pain with associated angioedema back in August of 2021, patient does not have any obvious facial swelling on examination no swelling of her lips tongue or airway. She did take some Benadryl earlier which was not helpful for her symptoms states she took it for her tremor. Patient deferred any pain or antiemetic other than fluids here in the department. Patient felt appropriate for discharge home with follow-up and return precautions. Patient did request CT disc to take for follow-up. This was provided. Labs and report were also included. Discharge Plan Departure Patient Disposition: Home Clinical Impression: Abdominal pain Instructions: DI for Abdominal Pain-Adult Activity Restrictions/Additional Instructions: Please follow up for recheck. You may continue home medications as prescribed. Please return for fevers greater than 100.4 F, new or worsening chest pain, shortness of breath, weakness or loss of sensation or movement, persistent or worsening abdominal pain, persistent vomiting, black or bloody stools or other new or concerning changes. Prescriptions: No Action hydrocortisone 2.5 % cream 1 applic topical BID PRN (Reason: itching) Qty: 90 0RF prednisone 20 mg tablet 40 mg PO DAILY Qty: 6 0RF cyclobenzaprine 10 mg tablet 10 mg PO TID PRN (Reason: muscle spasm) Qty: 15 0RF albuterol sulfate 90 mcg/actuation HFA aerosol inhaler 1 puff INHALATION PRN PRN (Reason: Cough) Patient Comments: INHALE 2 PUFFS INTO THE LUNGS EVERY 4 HOURS NEEDED FOR WHEEZING naratriptan 2.5 mg tablet 12.5 mg PO PRN PRN (Reason: Migraine Headache) clindamycin phosphate 1 % solution 1 applic TOPICAL DAILY Patient Comments: APPLY TOPICALLY TO THE AFFECTED AREA TWICE DAILY ibuprofen 600 mg tablet 600 mg PO TID-QID PRN (Reason: pain) Qty: 20 0RF Referrals: Calvin Urrutia FNP-C [Primary Care Provider] - Stand Alone Forms: Patient Portal/API
[2023-03-14] MEDS: SODIUM CHLORIDE 0.9% 1,000 ML 1000 ML IV (05:01)
[2023-03-14 05:02] LABS: Add Manual Diff / Slide Review NO; Basophils Absolute Auto 100 /uL (0-100); Basophils Percent Auto 1.1 % (0-2); Eosinophils Absolute Auto 200 /uL (0-450); Eosinophils Percent Auto 2.8 % (2-4); Hematocrit 36.3 % (36-46); Hemoglobin 12.2 g/dL (12.0-16.0); Lymphocytes Absolute Auto 1400 /uL (1100-4500); Lymphocytes Percent Auto 25.6 % (25-40); Mean Corpuscular HGB Conc 33.6 % (30-36); Mean Corpuscular Hemoglobin 30.1 PG (26-34); Mean Corpuscular Volume 89.5 fL (80-100); Monocytes Absolute Auto 400 /uL (0-900); Monocytes Percent Auto 7.8 % (3-14); Neutrophils Absolute Auto 3500 /uL (1500-7000); Neutrophils Percent Auto 62.7 % (50-75); Platelet Count 274 X10^3/uL (150-400); Red Blood Cell Count 4.05 X10^6/uL (4.0-5.2); White Blood Cell Count 5.6 X10^3/uL (4.5-11.0)
[2023-03-14 05:08] VITALS: PULSE 87; O2SAT 100
[2023-03-14 05:09] VITALS: BP 139/70; PULSE 87; O2SAT 100
[2023-03-14 05:09] LABS: Alanine Aminotransferase 19 IU/L (<35); Albumin Globulin Ratio 1.3 (1.0-2.8); Alkaline Phosphatase 39 U/L (38-126); Aspartate Aminotransferase 23 IU/L (14-36); BUN Creatinine Ratio 12.7 (6-22); Bilirubin Total 0.5 mg/dL (0.2-1.3); Blood Urea Nitrogen 10 mg/dL (7-17); Calcium 8.6 mg/dL (8.4-10.2); Carbon Dioxide 23 mmol/L (22-32); Chloride 105 mmol/L (98-107); Estimated Glomerular Filt Rate > 60 mL/min (>60); Globulin 3.2 g/dL (1.7-4.1); Glucose 117 mg/dL (70-100); HEMOLYSIS 26 (0-50); Lipase 47 U/L (23-300); Potassium 3.5 mmol/L (3.4-5.1); Sodium 136 mmol/L (137-145); Total Protein 7.2 g/dL (6.3-8.2)
[2023-03-14 05:30] VITALS: BP 128/62; PULSE 94; RESP 16; O2SAT 100
== END 2023-03-14 06:04 | disposition home or self-care (01) ==
PROVIDERS: Emergency Provider Emergency Medicine; PCP Nurse Practitioner
DX: R10.11 Right upper quadrant pain (principal)
CPT/HCPCS: 36415; 74177; 80053; 81003; 81025; 83690; 85025; 99284; Q9967

== ENCOUNTER → 2024-03-25 10:37 | Outpatient (CLI) | payer OTHER, SELFPAY ==
[2021-09-15 13:45] VITALS: BMI 25.8
== END ==
PROVIDERS: PCP Nurse Practitioner; Visit Provider Physician Assistant Surgical
DX: T14.8XXA Other injury of unspecified body region, initial encounter (principal)
CPT/HCPCS: 87070; 87075; 87077; 87186; 87205

== ENCOUNTER → 2024-03-29 11:50 | Outpatient (CLI) | payer OTHER, SELFPAY ==
[2021-09-15 13:45] VITALS: BMI 25.8
--- NOTE | 2024-03-29 11:52 | DI.MRI.S_ITS ---
PROCEDURE: MR LUMBAR SPINE WO CON INDICATIONS: SPINAL STENOSIS / EVAL NEURO STRUCTURES FAILED PT TECHNIQUE: Noncontrast sagittal T1 spin echo and T2 fast echo, sagittal STIR, and T2 fast spin echo through the lumbar spine. In cases with scoliosis, additional coronal T2 fast spin echo may be performed. COMPARISON: [facility], MR, MR LUMBAR SPINE WITHOUT CONTRAST, 08/11/2021, 17:23. [facility], CT, CT ABDOMEN PELVIS W CON, 03/14/2023, 4:42. [facility], CR, XR LUMBAR SPINE 2 OR 3 VIEWS, 05/10/2023, 15:35. FINDINGS: Image quality: Excellent. Alignment and Curvature: Mild levoconvex scoliotic curvature is noted. Minimal retrolisthesis can be seen at L5-S1. Bone Marrow: Marrow is of normal overall signal. No acute vertebral body compression fractures. Incidental note is made of a limbus vertebral body involving the anterior superior portion of the L5 vertebral body. Spinal Cord: Conus medullaris terminates at the L1 level. Visualized cord demonstrates normal signal and size. Paraspinous Soft Tissues: No paravertebral masses. T12-L1: Normal appearance. L1-L2: Normal appearance. L2-L3: Normal appearance. L3-L4: The disc height and disk signal are well-preserved. Mild generalized disc bulge is seen. Mild facet joint hypertrophy is seen. There is mild right-sided and no left-sided neural foraminal narrowing. No central canal narrowing is seen. There is slight progression compared to the prior. L4-L5: The disc height is well-preserved. Loss of disc signal is seen at this level. Moderate generalized disc bulge is seen. There is a superimposed central disc protrusion. There is a focal annular fissure seen posteriorly. Moderate facet joint hypertrophy is seen. Moderate bilateral neural foraminal narrowing is seen. Mild to moderate central canal narrowing is seen. There is mild progression compared to the prior. L5-S1: The disc height is well-preserved. Loss of disc signal is seen at this level. Moderate generalized disc bulge is seen. There is a superimposed central disc protrusion. There is a focal annular fissure seen posteriorly. Moderate facet joint hypertrophy is seen. Moderate bilateral neural foraminal narrowing can be seen, left worse than right. [id number] central canal narrowing is seen. There is slight progression compared to the 2021 MRI. IMPRESSION: Lower lumbar spine degenerative changes are seen, which are slightly progressed compared to the 2021 MRI. Additional findings: Limbus type L5 vertebral body Dictated by: Tanner Gaona M.D. on 03/29/2024 at 13:09 Approved by: Tanner Gaona M.D. on 03/29/2024 at 13:13
== END ==
PROVIDERS: PCP Nurse Practitioner; Referring Provider Orthopaedic Surgery Orthopaedic Surgery of the Spine; Visit Provider Orthopaedic Surgery Orthopaedic Surgery of the Spine
DX: M48.062 Spinal stenosis, lumbar region with neurogenic claudication (principal); M47.816 Spondylosis without myelopathy or radiculopathy, lumbar region; M47.817 Spondylosis without myelopathy or radiculopathy, lumbosacral region
CPT/HCPCS: 72148